=== PATIENT | female | born 2000 | race Caucasian/White ===

== ENCOUNTER 2024-07-02 14:09 | Observation (INO) | payer BC, SELFPAY ==
--- NOTE | ~2024-07-02 | XR_ITS ---
XR ankle LT min 3V Ordering provider: Alcira Pan PA-C History: . injury . Comparison: None. FINDINGS: BONES: Fracture of the medial and lateral malleoli is noted with displacement. Fracture in the forest pathology professor ior malleolus is also seen. JOINT SPACES: Widening of the ankle joint is noted. SOFT TISSUES: Soft tissue swelling over the medial malleolus. IMPRESSION: Trimalleolar fracture with minimal displacement of the tibia medially and widening of the joint space .. Reviewed, dictated and finalized at location A. IMPRESSION: Trimalleolar fracture with minimal displacement of the tibia medially and widen ing of the joint space..
--- NOTE | ~2024-07-02 | XR_ITS ---
HISTORY: splint COMPARISON: Plain film evaluation of the left ankle, performed 2 hours earlier TECHNIQUE: 2 views of the left ankle postreduction. FINDINGS: Near anatomic alignment of the distal fibula and tibia. The ankle mortise is is near anatomic. Significant bilateral soft tissue swelling is noted. IMPRESSION: Near anatomic alignment post reduction, as detailed above. Reviewed, dictated and finalized at location A.
--- NOTE | ~2024-07-02 | XR_ITS ---
INTRAOPERATIVE FLUOROSCOPY: CLINICAL HISTORY: 24 years old Female; ORIF LEFT ANKLE PROCEDURE COMMENTS: Limited intraoperative fluoroscopy of the left ankle was performed. CUMULATIVE DOSE: 0.94 mGy FLUOROSCOPY TIME: 48 seconds FINDINGS/IMPRESSION: Please refer to operative note for further details. Reviewed, dictated and finalized at location A.
[2024-07-02 14:19] VITALS: BP 135/87; PULSE 80; RESP 17; TEMP 36.4; O2SAT 100
--- OUTSIDE RECORDS SUMMARY | 2024-07-02 15:17 | XMS_ITS | Referral Summary ---
Author Organization [facility] er Address [address] [place] [address] Care Team Providers Care Block Saw Operator Name Role Phone Shelly Lemus NP Primary Care Provider [phone] Encounters Date Type Department Care Team Description 05/28/2024 Orders Only [address] [phone] Mary Piña, RN 05/27/2024 Orders Only [address] [id number] Mary Piña RN 05/20/2024 Results Follow-Up [address] [phone] Aracelis Almeida MD 05/14/2024 3:00 PM CDT Office Visit [address] [phone] Felicia Munguia NP Routine gynecological examination (Primary Dx) 04/29/2024 Orders Only [address] [phone] Aracelis Almeida MD 04/29/2024 Orders Only [facility] [address] [place] [id number] Felicia Munguia, CATCHER PLUG from Last 3 Months Allergies No known active allergies Medications busPIRone (BUSPAR) 5 mg tabletIndications :Generalized Anxiety Disorder Take 1 tablet (5 mg total) by mouth 3 (three) times a day 270 tablet 3 10/06/19 21 Active albuterol HFA (PROVENTIL HFA,VENTOLIN HFA,PROAIR HFA) 90 mcg/actuation inhaler INHALE 1 PUFF EVERY 4 HOURS NEEDED FOR WHEEZING OR SHORTNESS OF BREATH. 8.5 each 1 03/10/19 22 Active levonorgestreL (KYLEENA) IUD 1 each by intrauterine route once 07/08/19 22 027 Active Aklief 0.005 % cream 01/17/20 22 Active Onexton 1.2 %(1 % base) -3.75 % gel with pump 01/17/20 22 Active atomoxetine (STRATTERA) 18 mg capsuleIndication s:Attention-Defic it Hyperactivity Disorder Take 1 capsule (18 mg total) by mouth daily 90 capsule 1 10/03/19 23 Active escitalopram (LEXAPRO) 10 mg tablet Take 1 tablet (10 mg total) by mouth daily 90 tablet 11 02/12/20 24 Active tirzepatide, weight loss, (Zepbound) 5 mg/0.5 mL pen injector Inject 0.5 mL (5 mg total) under the skin every 7 days 2 mL 2 05/29/19 25 Active Active Problems Problem Noted Date Diagnosed Date B12 deficiency 10/02/2022 Assessment & Plan (10/02/2022 2:10 PM CDT): B12 on low end of normal. Discussed with patient she may utilize [id number] B12 500 mcg daily. Urinary incontinence 08/10/2022 Assessment & Plan (08/10/2022 2:20 PM CDT): Possible clinical presentation of overactive bladder or IC. UA today demonstrates trace blood and leukocytes. Repeat UA in 2 weeks. Will order Bactrim. May need pelvic floor physical therapy. Discussed bladder irritants. Refer to Urology for further evaluation. Encounter for weight loss counseling 10/12/2021 Assessment & Plan (06/06/2023 2:51 PM CDT): Discussed with patient today healthy well-balanced diet. Will refer to nutrition Services for further education. Discussed with patient increasing water intake and physical activity. Recommend daily multivitamin. Discussed GLP1 injectable weight loss medications. Discussed with patient long- term side effects and common side effects of medication. She will check with insurance to see if these are covered medications. Has failed Wellbutrin in the past. She will contact the [employer] if she wishes to start medication and follow-up in 4 weeks. Assessment & Plan (10/12/2021 10:37 AM CDT): Discussed healthy living today including need for healthy weight, healthy diet, adequate sleep, adequate activity level, and health maintenance screening tests. Attention deficit hyperactiv ity disorder (ADHD), predominantly inattentive type 08/30/2021 Assessment & Plan (10/02/2022 2:07 PM CDT): Chronic and worsening. Trial Strattera 18 mg daily. Discussed with patient if this helps improve symptoms of anxiety may also titrate down Lexapro. She will send message through [employer] regarding updates since she will be going back to school. If symptoms persist or worsen please call or return to clinic. Patient will schedule Pap and wellness exam. Assessment & Plan (08/10/2022 2:19 PM CDT): Unable to tolerate Adderall. Seems to be stable in school at this time. Assessment & Plan (02/13/2022 3:[address] RESEARCH ENGINEER): Chronic and worsening since she has not been on her medication. Will restart Adderall 10 mg in collaboration with Dr. Merchant. Patient lost follow-up when she went back to school and then contracted influenza a when she was due to be seen in clinic. Will continue does and treatment plan in collaboration with Dr. Merchant. She will completed tele visit in 3 months for follow-up. Assessment & Plan (10/12/2021 10:55 AM CDT): Patient seems to be doing very well on adderall 10mg daily. Will continue does and treatment plan in collaboration with Dr. Merchant. Patient will be moving back to [facility] for fallester. She will follow-up in 3 months when she is on fall break. Assessment & Plan (08/30/2021 3:45 PM CDT): Will start Adderall 10 mg once daily in collaboration with Dr. Merchant. Patient is attending school and working full-time. Discussed with patient this should better help her focus on her studies. Follow-up in 4 weeks for wellness exam and further evaluation. Generalized anxiety disorder 10/05/2020 Assessment & Plan (10/02/2022 2:07 PM CDT): Continue Lexapro 10 mg daily.. BuSpar 5 mg t.i.d. as needed. Pt agrees to call or RTC with any issues or concerns. Pt agrees to call or seek emergent medical attention and seek help from family members if there are any intentions of inflicting harm to self or others. Pt understands and agrees with treatment plan. Assessment & Plan (02/13/2022 3:[address] RESEARCH ENGINEER): Continue Lexapro 10 mg daily.. Pt agrees to call or RTC with any issues or concerns. Pt agrees to call or seek emergent medical attention and seek help from family members if there are any intentions of inflicting harm to self or others. Pt understands and agrees with treatment plan. Assessment & Plan (10/12/2021 10:55 AM CDT): Chronic and stable. Continue current medication(s) Assessment & Plan (02/11/2021 11:[address] RESEARCH ENGINEER): Patient doing well on Lexapro and BuSpar 5 mg 3 times a day as needed. Discussed increasing Lexapro however patient is doing well at this time. Assessment & Plan (10/05/2020 12:04 PM CDT): Treatment plan as above. May also consider p.r.n. propranolol Moderate episode of recurrent major depressive d isorder 03/11/2020 Assessment & Plan (06/06/2023 2:52 PM CDT): Chronic and stable. Continue current medication(s) Assessment & Plan (08/10/2022 2:18 PM CDT): Chronic and stable. Continue current medication(s) Assessment & Plan (02/13/2022 3:[address] RESEARCH ENGINEER): Chronic and stable. Continue current medication(s) Assessment & Plan (10/12/2021 10:48 AM CDT): Chronic and stable. Continue current medication(s) Assessment & Plan (08/30/2021 3:46 PM CDT): Chronic and stable. Continue current medication(s) Assessment & Plan (10/05/2020 12:04 PM CDT): Discussed with patient decreasing Wellbutrin to 150 mg once daily times 3-5 days while starting Lexapro half tab nightly. In 1 week patient may increase Lexapro to full tablet daily well stopping the Wellbutrin. Patient may also take BuSpar as needed for her anxiousness. Denies SI/HI today. Assessment & Plan (07/09/2020 1:37 PM CDT): Increase Wellbutrin to 300 mg daily and add BuSpar 5 mg as needed. Pt agrees to call or RTC with any issues or concerns. Pt agrees to call or seek emergent medical attention and seek help from family members if there are any intentions of inflicting harm to self or others. Pt understands and agrees with treatment plan. Assessment & Plan (03/26/2020 8:[address] RESEARCH ENGINEER): Patient seems to be improving on wellbutrin now that she has weaned off effexor. Continue wellbutrin 150mg daily and follow-up in 3-4 weeks. . Pt agrees to call or RTC with any issues or concerns. Pt agrees to call or seek emergent medical attention and seek help from family members if there are any intentions of inflicting harm to self or others. Pt understands and agrees with treatment plan. Assessment & Plan (03/11/2020 8:[address] RESEARCH ENGINEER): Wean off Effexor and start Wellbutrin since patient is in school. Patient to follow up with in touch visit in 2 weeks. Discussed with patient side effects of stopping Effexor abruptly. . Pt agrees to call or RTC with any issues or concerns. Pt agrees to call or seek emergent medical attention and seek help from family members if there are any intentions of inflicting harm to self or others. Pt understands and agrees with treatment plan. Chronic fatigue 03/11/2020 Assessment & Plan (08/10/2022 2:18 PM CDT): Will check labs. Encouraged healthy well-balanced diet. Please stop drinking energy drinks. Increase water intake. Assessment & Plan (05/26/2021 12:30 PM CDT): Patient does feel chronic fatigue may be related to control. She would like to stop control and consider IUD contraception. Patient does continue Lexapro daily. Class 2 obesity without seri ous comorbidity with body mass index (BMI) of 38.0 to 38.9 in adult 03/11/2020 Assessment & Plan (10/02/2022 2:00 PM CDT): BMI Follow-up includes: education provided. Assessment & Plan (08/10/2022 2:23 PM CDT): BMI Follow-up includes: education provided. Assessment & Plan (02/13/2022 3:[address] RESEARCH ENGINEER): BMI Follow-up includes: education provided. Assessment & Plan (10/12/2021 10:48 AM CDT): BMI Follow-up includes: education provided. Assessment & Plan (08/30/2021 3:23 PM CDT): BMI Follow-up includes: education provided. Assessment & Plan (05/26/2021 12:31 PM CDT): BMI Follow-up includes: education provided. Assessment & Plan (02/11/2021 11:[address] RESEARCH ENGINEER): BMI Follow-up includes: education provided. Assessment & Plan (07/09/2020 1:29 PM CDT): BMI Follow-up includes: education provided. Assessment & Plan (03/26/2020 8:[address] RESEARCH ENGINEER): BMI Follow-up includes: education provided. Assessment & Plan (03/11/2020 9:[address] RESEARCH ENGINEER): BMI Follow-up includes: education provided. Resolved Problems Problem Noted Date Diagnosed Date Resolved Date Elevated blood pressure read ing in office without diagnosis of hypertension 08/10/20222022 Assessment & Plan (08/10/2022 2:20 PM CDT): Patient will track home blood pressure readings and call if consistently greater than 130/80. IUD contraception 05/26/2021 05/14/2024 Assessment & Plan (05/26/2021 12:31 PM CDT): Will refer patient to OBGYN for consultation for IUD. Discussed with patient this may be a good alternative to oral contraceptives in if she has been feeling down and fatigue since taking control. Denies SI/HI today Awaiting cyber access at this time for confirmation of coverage for ID BMI 29.0-29.9,adult 10/05/2020 02/12/20 21 Assessment & Plan (10/05/2020 11:19 AM CDT): BMI Follow-up includes: education provided. Shortness of breath 10/05/2020 10/13/19 22 Assessment & Plan (02/11/2021 11:[address] RESEARCH ENGINEER): Clinical presentation of exercise-induced asthma however will order baseline chest x-ray today. Albuterol as needed prior to exercise. If chest x-ray negative and albuterol is not effective consider pulmonary function testing and wellness visit. Palpitations 10/05/2020 10/12/2021 Assessment & Plan (10/05/2020 12:03 PM CDT): EKG today demonstrated sinus rhythm me a with a heart rate of 67. No previous EKGs for comparison. Given patient's symptomatic palpitations will order Holter monitor. Also consider propranolol as needed for anxiety episodes. Oral contraceptive pill surveillance 07/09/2020 10/12/2021 Assessment & Plan (07/09/2020 1:37 PM CDT): Discussed risks, benefits of different contraceptive choices for contraception. States she has no personal or family history of classic migraine, stroke, venous thromboembolism, cardiac or cerebrovascular disease, lupus, hypertension. She is not a current smoker. After this counselling she elected to proceed with oral contraceptives. Has tolerated in past. Right ankle sprain 07/09/2020 Assessment & Plan (07/09/2020 1:38 PM CDT): Continue conservative measures. Call or rtc if symptoms persists or worsen. Rhinorrhea 03/11/2020 07/09/2020 Assessment & Plan (03/11/2020 8:[address] RESEARCH ENGINEER): Will COVID test today since patient is returning to school. Closed oblique fracture of w aist of scaphoid bone of right wrist 06/13/2018 03/11/2020 Immunizations Immunization Administration Dates Next Due COVID-19 mRNA (Click Bus) 0.3 m L (30 mcg) vaccine (12 years and up) 02/12/2024 DTaP 10/01/2006, 3,2001,10/03,2001 DTaP 5 Pertussis 06/05/2002, 2,2001,08/07 HPV, Quadrivalent 06/18/2014,12/11/2013 HPV9 12/21/2014 Hep A, Pediatric 12/20/2015,09/06/2012 Hep B / HiB 06/05/2002,2001 Hep B, Adolescent or Pediatric 06/05/2002,2001,2001 HiB 06/05/2002,2001,2001 Hib (HbOC) 2001 IPV 10/01/2006, 2,2001,08/07 Influenza LAIV (Nasal) 12/10/2010,12/22/2009, Influenza, Quadrivalent, Spl it, Preservative Free, Intramuscular 02/13/2022,02/11/2021,01/15/2020,12/19,12/21/2014,12/11/2013 Influenza, Split 12/18/2002 Influenza, Trivalent, IM (MDV) 12/18/2002,2001,01/03/2002 Influenza, Trivalent, Preser vative Free, Intramuscular 02/12/2024 Influenza, Unspecified 06/06/2023(Deferr ed: Patient decision),11/26/2022(Deferred: Patient decision),02/13/2022(Deferred: Patient Refused) MMR 10/01/2006,06/05/2002 Meningococcal B, OMV (Bexsero) 01/15/2020 Meningococcal Conjugate (Menveo) 01/15/2020 Meningococcal MCV4P (Menactra) 04/24/2018,2012 Pfizer SARS-CoV-2 Monovalent Vaccination (12+ Yrs) PURPLE 09/17/2020,08/25/2020 Pneumococcal Conjugate 7-Valent 12/19/19 03,2001,2001,08/07 Polio, Unspecified 2001,2001, 002 Tdap 09/06/2012 Varicella 10/01/2006,06/05/2002 Social History Tobacco Use Types Packs/Day Years Used Date Smoking Tobacco: Never Smokeless Tobacco: Never Tobacco Cessation:Counseling Given: Not Answered Alcohol Use Standard Drinks/Week Comments Defer 0 (1 standard drink = 0.6 oz pur e alcohol) PHQ-2 Answer Date Recorded PHQ-2 Total Score (If total score is 3 or more points, staff should administer the PHQ-9) 0 05/14/2024 Comments No Sex and Gender Information Value Date Recorded Sex Assigned at Not on file Legal Sex Female 12:[address] ENGINEER Gender Identity Not on file Sexual Orientation Not on file Last Filed Vital Signs Vital Sign Reading Time Taken Comments Blood Pressure 116/70 05/14/2024 3:16 PM CDT Pulse 90 05/14/2024 3:16 PM CDT Temperature 36.9 C (98.4 F) 11/15/2022 3:46 PM CDT Respiratory Rate 20 05/14/2024 3:16 PM CDT Oxygen Saturation 98% 05/14/2024 3:16 PM CDT Inhaled Oxygen Concentration - - Weight 95.3 kg (210 lb) 05/14/2024 3:16 PM CDT Height 162.6 cm (5' 4 ) 05/14/2024 3:16 PM CDT Body Mass Index 36.05 05/14/2024 3:16 PM CDT Plan of Treatment Not on file Procedures Procedure Name Priority Date/Time Associated Diagnosis Comments PAP, REFLEX HPV Routine 05/14/2024 4:08 PM CDT Routine gynecological examination N. GONORRHOEAE/C. TRACHOMATIS AMPLIFICATION Routine 05/14/2024 4:08 PM CDT from Last 3 Months Results * Pap, reflex HPV (05/14/2024 4:08 PM CDT) CLINICAL INFORMATION: None given [facility] LMP UNKNOWN [facility] Prev[facility] Bx NONE GIVEN [facility] SOURCE: Cervix, Endocervix [facility] Pap, specimen adequacy [facility] Comment: Satisfactory for evaluation. Endocervical/transformation zone component present. Age and/or menstrual status not provided HPV interp Cytology Results: Negative for intraepithelial lesion or malignancy. [facility] Infection: Fungal organisms morphologically consistent with Catherine spp. [facility] COMMENTS This Pap test has been evaluated with computer assisted technology. [facility] Banking Analyst [facility] [employer] [facility] Comment: TLS, CT(ASCP) CT Screening Location: [address] [address] Comment [facility] Comment: EXPLANATORY NOTE: The Pap is a screening test for cervical cancer. It is not a diagnostic test and is subject to false negative and false positive results. It is most reliable when a satisfactory sample, regularly obtained, is submitted with relevant clinical findings and history, and when the Pap result is evaluated along with historic and current clinical information. Thin prep 05/14/2024 4:08 PM CDT 05/16/2024 3:49 AM CDT Aracelis Almeida MD LAB CYTOLOGY ORDERABL ES Final Result Performing Organization Address [facility]/ZIP Co de Phone Number [facility] [address] * N. gonorrhoeae/C. trachomatis Amplification (05/14/2024 4:08 PM CDT) C. trachomatis RNA NOT DETECTED NOT DETECTED [facility] [place] N. gonorrhoeae RNA NOT DETECTED NOT DETECTED [facility] [place] Comment [facility] [place] Comment: The analytical performance characteristics of this assay, when used to test SurePath(TM) specimens have been determined by [facility]. The modifications have not been cleared or approved by the FDA. This assay has been validated pursuant to the CLIA regulations and is used for clinical purposes. For additional information, please refer to https://education.[employer].Fabbeo/faq/JGR636 (This link is being provided for information/ educational purposes only.) 05/14/2024 4:08 PM CDT 05/16/2024 3:49 AM CDT Aracelis Almeida MD LAB MICROBIOLOGY - GE NERAL ORDERABLES Final Result Performing Organization Address City/[facility]/ZIP Co de Phone Number [facility] [address] [address] from Last 3 Months Insurance [employer] OPEN ACCESS [facility] [place] [address] [facility] [employer] [place] [facility] Care Teams Block Saw Operator Relationship Specialty Start Date End Date Shelly Lemus NP [address] [place] [address] PCP - General Family Medicine 03/11/20
--- OUTSIDE RECORDS SUMMARY | 2024-07-02 15:17 | XMS_ITS | Encounter Summary ---
Author Organization [facility] Healthcare Address [address] [place] [address] Care Team Providers Care Rn Complex Care Name Role Phone Shelly Lemus NP Primary Care Provider [phone] Encounter Details Date Type Department Care Team (Late st Contact Info) Description 05/20/2024 Results Follow-Up [facility] [address] [place] [id number] Aracelis Almeida MD [address] [place] [address] Social History Tobacco Use Types Packs/Day Years Used Date Smoking Tobacco: Never Smokeless Tobacco: Never Alcohol Use Standard Drinks/Week Comments Defer 0 (1 standard drink = 0.6 oz pur e alcohol) PHQ-2 Answer Date Recorded PHQ-2 Total Score (If total score is 3 or more points, staff should administer the PHQ-9) 0 05/14/2024 Comments No Sex and Gender Information Value Date Recorded Sex Assigned at Not on file Legal Sex Female 12:30 AM COOKER PROCESS CHEESE Gender Identity Not on file Sexual Orientation Not on file documented as of this encounter Plan of Treatment Not on file documented as of this encounter Visit Diagnoses Not on filedocumented in this encounter Care Teams Rn Complex Care Relationship Specialty Start Date End Date Shelly Lemus NP [address] [place] [address], [place] [address] PCP - General Family Medicine 03/11/20 documented as of this encounter
--- OUTSIDE RECORDS SUMMARY | 2024-07-02 15:17 | XMS_ITS | Clinical Summary ---
Author Organization [facility] Address [address] [place] [address] Care Team Providers Care Bi Data Modeler Name Role Phone Shelly Lemus NP Primary Care Provider [phone] Allergies No known active allergies Medications busPIRone [...] normal. Discussed with patient she may utilize [id number] B12 500 mcg daily. Urinary incontinence 08/10/2022 [...] in the past. She will contact the [facility] if she wishes to start medication and [...] down Lexapro. She will send message through [employer] regarding updates since she will be going back to school. If symptoms persist or worsen please call or return to clinic. Patient will schedule Pap and wellness exam. Assessment & Plan (08/10/2022 2:19 PM CDT): Unable to tolerate Adderall. Seems to be stable in school at this time. Assessment & Plan (02/13/2022 3:43 PM ARTS AND CRAFTS INSTRUCTOR): Chronic and worsening since she has not [...] Merchant. Patient will be moving back to [employer] for fall semester. She will follow-up in 3 months when [...] plan. Assessment & Plan (02/13/2022 3:43 PM ARTS AND CRAFTS INSTRUCTOR): Continue Lexapro 10 mg daily.. Pt agrees [...] medication(s) Assessment & Plan (02/11/2021 11:28 AM ARTS AND CRAFTS INSTRUCTOR): Patient doing well on Lexapro and BuSpar [...] medication(s) Assessment & Plan (02/13/2022 3:41 PM ARTS AND CRAFTS INSTRUCTOR): Chronic and stable. Continue current medication(s) Assessment [...] plan. Assessment & Plan (03/26/2020 8:21 AM ARTS AND CRAFTS INSTRUCTOR): Patient seems to be improving on wellbutrin [...] plan. Assessment & Plan (03/11/2020 8:57 AM ARTS AND CRAFTS INSTRUCTOR): Wean off Effexor and start Wellbutrin since [...] provided. Assessment & Plan (02/13/2022 3:30 PM ARTS AND CRAFTS INSTRUCTOR): BMI Follow-up includes: education provided. Assessment & Plan (10/12/2021 10:48 AM CDT): BMI Follow-up includes: education provided. Assessment & Plan (08/30/2021 3:23 PM CDT): BMI Follow-up includes: education provided. Assessment & Plan (05/26/2021 12:31 PM CDT): BMI Follow-up includes: education provided. Assessment & Plan (02/11/2021 11:25 AM ARTS AND CRAFTS INSTRUCTOR): BMI Follow-up includes: education provided. Assessment & Plan (07/09/2020 1:29 PM CDT): BMI Follow-up includes: education provided. Assessment & Plan (03/26/2020 8:20 AM ARTS AND CRAFTS INSTRUCTOR): BMI Follow-up includes: education provided. Assessment & Plan (03/11/2020 9:00 AM ARTS AND CRAFTS INSTRUCTOR): BMI Follow-up includes: education provided. Resolved Problems [...] 22 Assessment & Plan (02/11/2021 11:26 AM ARTS AND CRAFTS INSTRUCTOR): Clinical presentation of exercise-induced asthma however will [...] 07/09/2020 Assessment & Plan (03/11/2020 8:56 AM ARTS AND CRAFTS INSTRUCTOR): Will COVID test today since patient is returning to school. Closed oblique fracture of w aist of scaphoid bone of right wrist 06/13/2018 03/11/2020 Encounters Date Type Department Care Team Description 05/28/2024 Orders Only [address] [phone] Mary Piña RN 05/27/2024 Orders Only [address] [phone] Mary Piña RN 05/20/2024 Results Follow-Up [address] [phone] Aracelis Almeida MD 05/14/2024 3:00 PM CDT Office Visit [address] [phone] Felicia Munguia NP Routine gynecological examination (Primary Dx) 04/29/2024 Orders Only [address] [address] Aracelis Almeida MD 04/29/2024 Orders Only [address] [phone] Felicia Munguia NP from Last 3 Months Immunizations Immunization Administration Dates Next Due COVID-19 mRNA (Prylos) 0.3 m L (30 mcg) vaccine (12 [...] Unspecified 2001,2001, 002 Tdap 09/06/2012 Varicella 10/01/2006,06/05/2002 Medical History Medical History Date Comments Heart murmur Family History Medical History Relation Name Comments Asthma Brother Stanley Asthma; Diabetes Father Yaritza Other Father Yaritza Diabetes -Type 1; Cervical cancer Mother Other Mother Alive and well; Allergies Other Family history of Allergies; Allergies Sister Allergies; Breast cancer Neg Hx Colon cancer Neg Hx Ovarian cancer Neg Hx Pancreatic cancer Neg Hx Skin cancer Neg Hx Relation Name Status Comments Brother Stanley Father Yaritza Alive Mother Alive Other Sister Social History Tobacco Use Types Packs/Day Years [...] on file Legal Sex Female 12:30 AM ARTS AND CRAFTS INSTRUCTOR Gender Identity Not on file Sexual Orientation Not on file Obstetrics History Para Term AB IAB SAB Ectopic Multiple Livin g Live Births 0 0 0 0 0 0 0 0 0 0 0 Last Filed Vital Signs Vital Sign Reading [...] 05/14/2024 3:16 PM CDT Plan of Treatment Health Maintenance Due Date Last Done Comments Hepatitis C Screening 2001 Meningococcal B Vaccine (2 o f 2 - Bexsero SCDM 2-dose series) 07/14/2020 01/15/2020 DTaP/Tdap/Td Vaccine (7 - Td or Tdap) 09/06/2022 09/06/2012, 10/01/2006, 06/05/2002, Additional history exists Cervical Cancer Screening 05/14/2025 05/14/2024 Chlamydia and Gonorrhea (GC/ CT) Screening 05/14/2025 05/14/2024, 07/12/2020, 07/09/2020 Depression Screening 05/14/2025 05/14/2024, 06/06/2023, 10/02/2022, Additional history exists Regular Well Visit/Exam 18-64 05/14/2025, 10/12/2021, 01/15/2020 Hepatitis B Screening Completed 06/05/2002 , 06/05/2002, 2001, Additional history exists Pneumococcal vaccine <65 Completed 003, 2001, 2001, Additional history exists Varicella Vaccines Completed 10/01/2006, 06/05/2002 HPV Vaccines Completed 12/21/2014, 05/28, 12/11/2013 Covid-19 Vaccine Completed 02/12/2024, , 08/25/2020 Influenza Vaccine Completed 02/12/2024, , 02/11/2021, Additional history exists Procedures Procedure Name Priority Date/Time Associated Diagnosis Comments PAP, REFLEX HPV Routine 05/14/2024 4:08 PM CDT Routine gynecological examination N. GONORRHOEAE/C. TRACHOMATIS AMPLIFICATION Routine 05/14/2024 4:08 PM CDT from Last 3 Months Results * Pap, reflex HPV (05/14/2024 4:08 PM CDT) CLINICAL INFORMATION: None given [facility] LMP UNKNOWN [facility] Previous Pap NONE GIVEN [facility] Prev. Bx NONE GIVEN [facility] SOURCE: Cervix, Endocervix [facility] Pap, specimen adequacy [facility] Comment: Satisfactory for evaluation. Endocervical/transformation zone component present. Age and/or menstrual status not provided HPV interp Cytology Results: Negative for intraepithelial lesion or malignancy. [facility] Infection: Fungal organisms morphologically consistent with Catherine spp. [facility] COMMENTS This Pap test has been evaluated with computer assisted technology. [facility] Crew Chief [facility] Comment: TLS, CT(ASCP) CT Screening Location: [place] [address] Comment [facility] Comment: EXPLANATORY NOTE: The Pap is a [...] ORDERABL ES Final Result Performing Organization Address City/[facility]/ZIP Co de Phone Number [employer] [address] [address] [place] [address] * N. gonorrhoeae/C. trachomatis Amplification (05/14/2024 4:08 PM CDT) C. trachomatis RNA NOT DETECTED NOT DETECTED [facility] [place] N. gonorrhoeae RNA NOT DETECTED NOT DETECTED [facility] Comment [facility] Comment: The analytical performance characteristics of this assay, when used to test SurePath(TM) specimens have been determined by [facility]. The modifications have not been cleared or approved by the FDA. This assay has been validated pursuant to the CLIA regulations and is used for clinical purposes. For additional information, please refer to https://education.Graffiti/faq/OKZ498 (This link is being provided for information/ educational purposes only.) 05/14/2024 4:08 PM CDT 05/16/2024 3:49 AM CDT Aracelis Almeida MD LAB MICROBIOLOGY - GE NERAL ORDERABLES Final Result Performing Organization Address City/[facility]/ZIP Co de Phone Number [employer] [address] [place] [address] from Last 3 Months Insurance FOR[facility], 1928–1983 [place] [address] [facility] CARLIE REYNOLDS [facility] Care Teams Bi Data Modeler Relationship Specialty Start Date End Date Shelly Lemus NP [address] [place] [address] PCP - General Family Medicine 03/11/20
--- OUTSIDE RECORDS SUMMARY | 2024-07-02 15:17 | XMS_ITS | Clinical Summary ---
Author Organization [facility] Address [address] [place] [address] Phone Care Team Providers Care Grove Superintendent Name Role Phone Unavailable Primary Care Provider Unavailabl e Allergies No known active allergies Medications escitalopram 10 mg tablet Take 1 Tablet by mouth daily. 3 Active levonorgestreL (KYLEENA) 17.5 mcg/24 hrs (5 yrs) 19.5 mg IUD 1 Each by Intrauterine route. 2 Active Active Problems Problem Noted Date Diagnosed Date Urinary incontinence 08/10/2022 Overview (09/06/2022): Last Assessment & Plan: Possible clinical presentation of overactive bladder or IC. UA today demonstrates trace blood and leukocytes. Repeat UA in 2 weeks. Will order Bactrim. May need pelvic floor physical therapy. Discussed bladder irritants. Refer to Urology for further evaluation. Elevated blood pressure read ing in office without diagnosis of hypertension 08/10/2022 Overview (09/06/2022): Last Assessment & Plan: Patient will track home blood pressure readings and call if consistently greater than 130/80. Attention deficit hyperactiv ity disorder (ADHD), predominantly inattentive type 08/30/2021 Overview (09/06/2022): Last Assessment & Plan: Unable to tolerate Adderall. Seems to be stable in school at this time. IUD contraception 05/26/2021 Overview (09/06/2022): Last Assessment & Plan: Will refer patient to OBGYN for consultation for IUD. Discussed with patient this may be a good alternative to oral contraceptives in if she has been feeling down and fatigue since taking control. Denies SI/HI today Awaiting cyber access at this time for confirmation of coverage for ID Generalized anxiety disorder 10/05/2020 Overview (09/06/2022): Last Assessment & Plan: Continue Lexapro 10 mg daily.. Pt agrees to call or RTC with any issues or concerns. Pt agrees to call or seek emergent medical attention and seek help from family members if there are any intentions of inflicting harm to self or others. Pt understands and agrees with treatment plan. Episode of recurrent major depressive disorder 0 03/11/2020 Overview (09/06/2022): Last Assessment & Plan: Chronic and stable. Continue current medication(s) Chronic fatigue 03/11/2020 Overview (09/06/2022): Last Assessment & Plan: Will check labs. Encouraged healthy well-balanced diet. Please stop drinking energy drinks. Increase water intake. Social History Tobacco Use Types Packs/Day Years Used Date Smoking Tobacco: Never Smokeless Tobacco: Never Alcohol Use Standard Drinks/Week Comments Not Currently 0 (1 standard drink = 0.6 oz pur e alcohol) Comments Unknown Sex and Gender Information Value Date Recorded Sex Assigned at Not on file Legal Sex Female 10:34 AM CDT Gender Identity Not on file Sexual Orientation Not on file Last Filed Vital Signs Vital Sign Reading Time Taken Comments Blood Pressure 139/84 09/06/2022 2:39 PM CDT Pulse 116 09/06/2022 2:39 PM CDT Temperature 36.8 C (98.3 F) 07/03/2020 10:39 AM CDT Respiratory Rate 19 07/03/2020 10:39 AM CDT Oxygen Saturation 100% 09/06/2022 2:39 PM CDT Inhaled Oxygen Concentration - - Weight 103.4 kg (228 lb) 09/06/2022 2:39 PM CDT Height 165.1 cm (5' 5 ) 09/06/2022 2:39 PM CDT Body Mass Index 37.94 09/06/2022 2:39 PM CDT Plan of Treatment Health Maintenance Due Date Last Done Comments CHLAMYDIA SCREENING (ANNUAL) 11-24 YEARS 2012 CERVICAL CANCER SCREENING 2022 HPV/Cotest (21-29) 2022 PAP SMEAR 2022 DTAP/TDAP/TD VACCINES (7 - T d or Tdap) 09/06/2022 09/06/2012, 10/01/2006, 06/05/2002, Additional history exists INFLUENZA VACCINE (#1) 2023 , 02/11/2021, 01/15/2020, Additional history exists HEPATITIS B VACCINES Completed 06/05/2002, 06/05/2002, 2001, Additional history exists HPV VACCINES Completed 12/21/2014, 05/28, 12/11/2013 Insurance [facility] [place] [id number]
[2024-07-02] MEDS: HYDROmorphone HCL INJ (*CRX) 2 MG/ML VIAL 1 MG IV PUSH (16:37)
--- NOTE | 2024-07-02 17:18 | ED.LOWEXIN ---
HPI - Extremity Injury (Lower) General Chief Complaint: Extremity Injury, Lower Stated Complaint: Injury Left ankle-stepped in hole Time Seen by Provider: 07/02/24 14:56 History of Present Illness HPI Narrative: Patient is a 24-year-old female who presents ER with left ankle pain. Stepped in a hole while walking and had sudden onset pain. Cannot bear weight. Has deformity that was splinted by EMS. No numbness or tingling. No head injury. Related Data Home Medications Medication Instructions Recorded Confirmed Last Taken Type clindamycin phosphate 1 % topical 1 applic topical HS 07/02/24 07/02/24 07/02/24 History gel escitalopram oxalate 10 mg tablet 10 mg PO DAILY 07/02/24 07/02/24 07/02/24 History Allergies Allergy/AdvReac Type Severity Reaction Status Date / Time No Known Allergies Allergy Verified 07/02/24 14:10 Review of Systems Review of Systems: All systems reviewed & are unremarkable except as noted in HPI and below Constitutional: Constitutional: Reports no additional constitutional complaints ENT: Reports system reviewed and no additional complaints, except as documented Cardiovascular: Cardiovascular: Reports no additional cardiovascular complaints Respiratory: Respiratory: Reports no additional respiratory complaints Gastrointestinal: Gastrointestinal: Reports no additional gastrointestinal complaints [facility] Past Medical History Medical History (Updated 07/02/24 @ 22:58 by Pop Aguilar MD) Healthy female adult Family History Family History (Updated 07/02/24 @ 18:35 by Venice Gonzalez RN) Father Type 1 diabetes Mother Uterine sarcoma Social History Social History Smoking status: Never smoker Alcohol intake: former Substance use: former Substance use type: marijuana Do You Feel Safe in your Home?: Yes Lack of Transportation: No Lack of Food: Never True Current Housing: I Have Housing Concerned About Future Housing: No Difficulty Paying Gas/Electric Bills: No Difficulty Paying for Meds: No Currently Unemployed: No Education: Associate Degree Difficulty w/ Childcare or Family Care: No Spiritual care concerns: No Exam Narrative: GENERAL: Well-appearing, well-nourished, and in no acute distress. HEAD: Normocephalic, atraumatic. ENT: Mucous membranes moist. NECK: Supple. CHEST: Clear to auscultation. No respiratory distress. HEART: Regular rate and rhythm. Normal peripheral pulses. EXTREMITIES: Left ankle deformity and tenderness over the medial and lateral malleolus. Neurovascular intact. SKIN: Warm, dry, no rash. NEURO: Alert and oriented x3. PSYCH: Normal mood and affect. Course Vital Signs Vital signs: Vital Signs Temperature 97.6 F 07/02/24 14:19 Pulse Rate 80 07/02/24 14:19 Respiratory Rate 17 07/02/24 14:19 Blood Pressure 135/87 07/02/24 14:19 Pulse Oximetry 100 07/02/24 14:19 Oxygen Delivery Room Air 07/02/24 14:19 Temperature 97.4 F L 07/02/24 18:30 Pulse Rate 89 07/02/24 18:30 Respiratory Rate 18 07/02/24 18:30 Blood Pressure 116/71 07/02/24 18:30 Pulse Oximetry 100 07/02/24 18:30 Oxygen Delivery Room Air 07/02/24 14:19 Procedures Orthopedic Fracture Reduction Fracture #1: Time Out Performed: Yes Side: left Fracture Reduction Location: tibia and fibula Analgesia: none Pre-Procedure Neuro Vascular Exam: normal Technique: direct manipulation (Held big toe to relocate unstable ankle) Post Reduction X-rays Demonstrate: anatomical reduction Post-reduction neuro exam: intact Post-reduction vascular exam: intact Splint Applied: Yes (Stirrup splint and short-leg posterior) Patient Tolerated Procedure: well Discharge Plan Discharge Clinical Impression: Closed trimalleolar fracture Patient Disposition: Still a Patient Condition: Stable
[2024-07-02 18:05] VITALS: BP 116/62; PULSE 96; RESP 16; O2SAT 99
--- NOTE | 2024-07-02 18:23 | ADMGEN ---
This patient, Jane Reyze, was admitted to 3 [facility] Surg Room 311-01. Patient/family oriented to hospital policies and general routines including ID bracelet, bed and alarms, visiting hours, pain management, procedures, bathroom and other care routines, personal items, smoking policy, room service/diet, and visiting hours. Information on how to activate the Rapid Response Team has been discussed. Patient/Family are encouraged to report perceived risks to care and to ask questions if they do not understand what they are told or what they should do.
[2024-07-02 18:25] VITALS: BMI 34.0
[2024-07-02 18:30] VITALS: BP 116/71; PULSE 89; RESP 18; TEMP 36.3; O2SAT 100
[2024-07-02] MEDS: SODIUM CHLORIDE 0.9% IV 1,000 ML 125 ML IV CONT (18:44)
[2024-07-02] MEDS: HYDROcodone/acetaminophen (*CRX) 5-325 MG TABLET 1 TAB PO ×2 (18:50→22:33)
[2024-07-02] MEDS: ONDANSETRON INJ 4 MG/2 ML VIAL IV PUSH ×2 (18:51→22:33)
[2024-07-02 20:47] VITALS: BP 114/66; PULSE 81; RESP 16; TEMP 37.3; O2SAT 100
[2024-07-02 22:00] VITALS: BP 144/60; PULSE 76; RESP 16; TEMP 37.1; O2SAT 100
[2024-07-03] VITALS (13 sets, daily range): BP systolic 113–133; BP diastolic 57–77; PULSE 74–96; RESP 11–20; TEMP 36.1–37; O2SAT 97–100
[2024-07-03] MEDS: SODIUM CHLORIDE 0.9% IV 1,000 ML 125 ML IV CONT ×3 (03:05→16:06)
[2024-07-03] MEDS: MORPHINE SULFATE (*CRX) 4 MG/ML INJ IV PUSH ×5 (03:47→19:51)
[2024-07-03] MEDS: ONDANSETRON INJ 4 MG/2 ML VIAL IV PUSH ×2 (03:48→08:58)
--- NOTE | 2024-07-03 08:58 | PM.IMHP ---
H&P: HPI History of Present Illness Date/Time: 07/03/24 08:58 Chief Complaint: Left ankle fracture Narrative: 24-year-old woman who was hiking yesterday, stepped and twisted left ankle. Obvious deformity and unable to bear weight. Presented to the emergency room and was found to have fracture of the left ankle with subluxation of the ankle mortise. Subluxation reduced in the emergency room and splinted. Patient admitted for further care. Complains of pain left ankle. Denies numbness or tingling. Denies any prior problems with the ankle. Denies any other injury at the time of her fall. Review of Systems Constitutional: Constitutional: Denies fever(s) Eyes: Eyes: Denies blurry vision ENT: Reports Normal hearing present Cardiovascular: Cardiovascular: Denies chest pain and Denies dyspnea Respiratory: Respiratory: Denies dyspnea and Denies wheezing Gastrointestinal: Gastrointestinal: Denies abdominal pain Genitourinary: Genitourinary: Denies urinary urgency Musculoskeletal: Musculoskeletal: Reports as per HPI and Denies numbness Integumentary/Breasts: Skin/Breast: Denies changing lesions and Denies sores Neurologic: Reports Normal hearing present, Denies behavioral changes, Denies confusion, Denies numbness and Denies convulsions Psychiatric: Psychiatric: Denies behavioral changes, Denies confusion and Denies hallucinations Endocrine: Endocrine: Denies heat intolerance Hematologic/Lymphatic: Hematologic/Lymphatic: Denies easy bleeding Allergic/Immunologic: Allergic/Immunologic: Denies wheezing PMF Past Medical History Medical History Healthy female adult Family History Family History Father Type 1 diabetes Mother Uterine sarcoma Social History Social History Smoking status: Never smoker Alcohol intake: former Substance use: former Substance use type: marijuana Do You Feel Safe in your Home?: Yes Lack of Transportation: No Lack of Food: Never True Current Housing: I Have Housing Concerned About Future Housing: No Difficulty Paying Gas/Electric Bills: No Difficulty Paying for Meds: No Currently Unemployed: No Education: Associate Degree Difficulty w/ Childcare or Family Care: No Spiritual care concerns: No Meds Home Medications and Allergies Home Medications Medication Instructions Recorded Confirmed Type clindamycin phosphate 1 % topical 1 applic topical HS 07/02/24 07/02/24 History gel escitalopram oxalate 10 mg tablet 10 mg PO DAILY 07/02/24 07/02/24 History Allergies Allergy/AdvReac Type Severity Reaction Status Date / Time No Known Allergies Allergy Verified 07/02/24 14:10 Vital Signs Vital Signs - 24 hr 07/02/24 14:19 07/02/24 18:05 07/02/24 18:30 Temperature 97.6 F 97.4 F L Pulse Rate 80 96 89 Respiratory Rate 17 16 18 Blood Pressure 135/87 116/62 116/71 Pulse Oximetry 100 99 100 Oxygen Delivery Room Air 07/02/24 20:47 07/02/24 22:00 Temperature 99.1 F 98.8 F Pulse Rate 81 76 Respiratory Rate 16 16 Blood Pressure 114/66 144/60 H Pulse Oximetry 100 100 Oxygen Delivery Exam Const: General: No confusion Orientation/consciousness: No confusion HENMT: Head: normal to inspection, normocephalic and atraumatic Neck: Neck: supple and nontender Chest: Chest palpation & inspection: normal inspection of the chest Resp: Effort & Inspection: normal respiratory effort and no audible wheezes Cardio: Rate: regular rate : General: Yes deferred Skin: General skin exam: no rashes or lesions noted Neuro: General: No confusion Extrem: General: capillary refill normal Right upper extremity: normal to inspection Left upper extremity: normal to inspection Right lower extremity: normal to inspection and hip/thigh Details: normal to inspection Left lower extremity: hip/thigh Details: normal to inspection, knee Details: normal to inspection and knee ligament exam normal Details: anterior drawer test normal, valgus stress test normal, varus stress test normal and Babak's test normal, ankle (no calf tenderness) Details: abnormal to inspection ( Obvious swelling at the ankle joint), tenderness ( lateral malleolus), swelling (moderate lateral ankle), abnormal ROM Details: pain with active ROM Details: with plantar flexion and with dorsiflexion and with range as follows ( limited secondary to injury), crepitus Details: at the lateral malleolus and other ( good capillary refill in toes, Good sensation to touch throughout all toes. Splint in place. Able to move toes.) and foot Details: normal capillary refill, toes with normal ROM, vascular exam Details: dorsalis pedis pulse present and motor-sensory exam Psych: Affect: normal affect H&P: Results Imaging Ankle x-ray left: My impression: emergency room radiographs show left ankle trimalleolar fracture with posterior subluxation of the talus. Posterior reduction films show talus in good all alignment in the ankle mortise. Medial and lateral malleolus fractures with displacement. Small posterior malleolus fracture. Assessment and Plan Assessment and plan (1) Closed trimalleolar fracture: Qualifiers: Encounter type: initial encounter Laterality: left Qualified Code(s): S82.852A - Displaced trimalleolar fracture of left lower leg, initial encounter for closed fracture Code(s): S82.853A - Displaced trimalleolar fracture of unspecified lower leg, initial encounter for closed fracture Status: Acute Assessment and Plan: New patient evaluation for chief complaint Left ankle fracture. History, physical exam and radiographs reviewed with the patient. Fall twisting the left ankle yesterday. Reduced in the emergency room. Discussed the condition, nature, etiology and course of natural history with the patient. Treatment options including surgical and nonoperative treatment were reviewed. Risks and benefits of each as well as alternatives reviewed. The patient's questions were answered. Conservative treatment ice, compression and elevation. Mechanical DVT prophylaxis with SCDs right lower extremity. Pain control. Plan Discussed nonoperative and operative treatment options with the patient. Risks and benefits of each as well as alternatives were reviewed. All of the patient's questions were answered. The risks of surgery reviewed including but not limited to: Neurovascular damage, wound complication, infection, blood clot, pulmonary embolus, stroke, myocardial infarction, and anesthetic risks up to and including . Continued pain and possible dysfunction were explained. Specific risks of the procedure including later recurrence of deformity. No guarantees were offered. If hardware used, discussed risk of failure/ breakage and possible need for removal. If complications occur, the patient understands the need for further treatment, possible further surgery. Patient verbalizes understanding and wishes to proceed. PLAN: Open reduction internal fixation left ankle fracture.
--- NOTE | 2024-07-03 09:03 | WPDHPUPDATE1 ---
History and Physical Update Update Date/Time: 07/03/24 09:03 History and Physical has been reviewed, including an updated exam of the patient. There are NO changes in the patient's condition. Risks, benefits, and alternatives have been discussed and questions answered. Patient agrees to proceed with procedure.
[2024-07-03] MEDS: HYDROcodone/acetaminophen (*CRX) 5-325 MG TABLET 1 TAB PO ×2 (11:13→16:42)
--- NOTE | 2024-07-03 12:05 | PC.NURSE ---
Pt leaving floor and headed to pre-op.
[2024-07-03] MEDS: LACTATED RINGERS 1,000 ML 30 ML IV CONT ×2 (12:10→14:38)
[2024-07-03] MEDS: ACETAMINOPHEN 500 MG TABLET 1000 MG PO (12:20)
[2024-07-03] MEDS: KETOROLAC 15 MG/ML VIAL (*BKC) IV PUSH (12:20)
[2024-07-03 12:31] LABS: BEDSIDEPREGUCG Negative (Negative)
--- NOTE | 2024-07-03 12:40 | WPDANESEPPF ---
Anes - Initial Pre Proc Eval Procedure: Operation Date: 07/03/24 14:30 Proposed Procedures p Open Reduction Internal Fixation Left Ankle Fracture - Dominick eKys MD Date/Time: 07/03/24 12:40 Surgeon: Dominick Keys MD Pre Op Diagnosis: trimalleolar fracture left ankle Patient Data Age: 24 Gender: F Height: 1.63 m Weight: 90 kg Last Vital Signs Temp 98.8 F 07/02/24 22:00 Pulse 76 07/02/24 22:00 Resp 16 07/02/24 22:00 BP 144/60 H 07/02/24 22:00 Pulse Ox 99 07/03/24 09:10 O2 Del Method Room Air 07/03/24 09:24 Allergies Allergy/AdvReac Type Severity Reaction Status Date / Time No Known Allergies Allergy Verified 07/02/24 14:10 Home Medications Medication Instructions Recorded Confirmed Type clindamycin phosphate 1 % topical 1 applic topical HS 07/02/24 07/02/24 History gel escitalopram oxalate 10 mg tablet 10 mg PO DAILY 07/02/24 07/02/24 History Laboratory Tests 07/03/24 12:15 POC Urine HCG, Qual Negative (Negative) Patient hx anesthesia problems: none Family hx anesthesia problems: none Results Review: All pre-operative results and documents have been reviewed as part of the pre-operative evaluation. [facility] Past Medical History Medical History Healthy female adult Family History Family History Father Type 1 diabetes Mother Uterine sarcoma Social History Social History Smoking status: Never smoker Alcohol intake: former Substance use: former Substance use type: marijuana Do You Feel Safe in your Home?: Yes Lack of Transportation: No Lack of Food: Never True Current Housing: I Have Housing Concerned About Future Housing: No Difficulty Paying Gas/Electric Bills: No Difficulty Paying for Meds: No Currently Unemployed: No Education: Associate Degree Difficulty w/ Childcare or Family Care: No Spiritual care concerns: No Anes - Eval Final PreProcedure Day of Procedure 07/03/24 12:40 Patient weight: obese Lungs: normal air movement Airway: Mallampati scale class II and special considerations (Small mouth noted. ) Neurological: alert and oriented Last oral intake: >/= 8 hours ASA classification: II Emergent: no Anesthetic plan: proceed Anesthesia type and monitoring: general LMA and standard monitoring Results Review: All pre-operative results and documents have been reviewed as part of the pre-operative evaluation. BMI 34. Informed Consent: The patient's anesthetic plan and its attendant risks and benefits were discussed with the patient/family/POA. Questions were solicited and answers provided to the satisfaction of the patient/family/POA.
[2024-07-03] MEDS: ceFAZolin 2 GM/D5W 50 ML 2 GM/50 ML BAG IVPB (13:41)
[2024-07-03] MEDS: BUPIVACAINE/EPINEPHRINE 0.5% 50 ML VIAL 30 ML INFILTRATE (13:42)
--- NOTE | 2024-07-03 14:44 | P.OP_ITS ---
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 Presents for operative treatment. Description of Procedure After informed consent, the operative extremity was marked in the preoperative holding area. Patient received intravenous antibiotics. Patient was then taken to the operating room and underwent general anesthesia by the anesthesia team. Positioned supine on the operating room table with a soft bump under the ipsilateral hip. A time-out was performed confirming the patient, site of the surgery, operative plan. Lower extremity then prepped and draped in the usual sterile surgical fashion using ChloraPrep skin solution. Foot and ankle exsanguinated and a thigh tourniquet inflated to 275 mmHg. Longitudinal incision made over the lateral ankle distal fibula with a 15 blade knife. Hemostasis controlled with electrocautery. Full-thickness soft tissue flaps developed and the fascia was incised in line with the skin incision. Fracture identified and cleared with a dental pick, irrigation and rongeur. Fracture reduced and held with bone-holding clamp. Image intensification confirmed reduction of the fracture and the ankle mortise. Fixation achieved with Neutralization with a lateral plate with unicortical screws distal to fracture and bicortical screws proximal to the fracture. Good alignment and stability of the fracture noted. Image intensification used to confirm reduction of the fracture and placement of the hardware. Medial side then addressed. Longitudinal incision made with a 15 blade knife over the medial malleolus fracture. Hemostasis controlled with electrocautery. Fascia incised in line with skin incision. Periosteum cleared from the medial malleolus fracture. Medial side of the joint inspected and noted to have mild amount of trauma to the chondral surface. Thorough irrigation of the ankle joint and suctioned out. Fracture reduced and provisionally pinned. Fixation achieved with 4.0 mm partially threaded cancellous screws x2 placed in cannulated screw fashion. Image intensification confirmed reduction of the fracture and placement of the hardware. Stress of the ankle performed with good stability of the ankle mortise in all directions. Posterior malleolus noted to be reduced and stable. Wounds thoroughly irrigated with antibiotic solution. Fascia repaired with 00 Vicryl interrupted suture. Subcutaneous tissue repaired with 000 Monocryl interrupted suture and Skin approximated with 4-0 nylon. Sterile dressings applied followed by bulky dressing and splint. Patient awoken from anesthesia, extubated and taken to the recovery room in stable condition. All sponge, needle and instrument counts correct at the end of the case. Palpable dorsalis pedis pulse noted prior to dressing. Implants Arthrex 1/3 tubular plate, 6 hole with 6 screws. 4.0 mm partially-threaded cannulated screw x2 medially Estimated Blood Loss 50 Tourniquet Time Total Tourniquet Time: 50 Drains No Packing No Pathology None sent Complications None Condition Stable Disposition PACU [facility] Billing Surgery - Charge Forward: Surgery Billing ([id number])
--- NOTE | 2024-07-03 16:07 | PC.NURSE ---
Pt returned back to floor following surgery after completing PACU Phase.
[2024-07-03] MEDS: IBUPROFEN IV 800 MG/200 ML 800 MG/200 ML BAG 400 MG IVPB (16:41)
[2024-07-03] MEDS: SENNA/DOCUSATE SODIUM TABLET 2 TAB PO (16:42)
[2024-07-03] MEDS: ceFAZolin 1 GM/NS 50 ML 1 GM/50 ML BAG IVPB (20:23)
[2024-07-04 01:33] VITALS: BP 120/52; PULSE 61; RESP 17; TEMP 36.1; O2SAT 100
[2024-07-04] MEDS: HYDROcodone/acetaminophen (*CRX) 5-325 MG TABLET 1 TAB PO ×2 (02:36→08:07)
[2024-07-04] MEDS: ceFAZolin 1 GM/NS 50 ML 1 GM/50 ML BAG IVPB (05:12)
[2024-07-04 05:33] VITALS: BP 104/44; PULSE 63; RESP 16; TEMP 36.2; O2SAT 99
[2024-07-04 08:00] VITALS: O2SAT 100
[2024-07-04] MEDS: ESCITALOPRAM OXALATE 10 MG TABLET PO (08:07)
[2024-07-04] MEDS: polyethylene glycoL 3350 17 GM POWD.PACK PO (08:07)
[2024-07-04] MEDS: SENNA/DOCUSATE SODIUM TABLET 2 TAB PO (08:08)
--- OUTSIDE RECORDS SUMMARY | 2024-07-07 07:06 | XMS_ITS | Clinical Summary ---
Author Organization [facility] Address [address] [place] [address] Phone Care Team Providers Care Ophthalmic Aide Name Role Phone Unavailable Primary Care Provider [...] HPV VACCINES Completed 12/21/2014, 05/28, 12/11/2013 Insurance [facility] [place] [id number]
--- OUTSIDE RECORDS SUMMARY | 2024-07-07 07:06 | XMS_ITS | Referral Summary ---
Author Organization [facility] er Address [address] [place] [address] Care Team Providers Care Php Magento Developer Name Role Phone Shelly Lemus NP Primary Care Provider [phone] Encounters Date Type Department Care Team Description 05/28/2024 Orders Only [address] [id number] Mary Piña, RN 05/27/2024 Orders Only [address] [phone] Mary Piña RN 05/20/2024 Results Follow-Up [address] [phone] Aracelis Almeida MD 05/14/2024 3:00 PM CDT Office Visit [address] [phone] Felicia Munguia NP Routine gynecological examination (Primary Dx) 04/29/2024 Orders Only [address] [phone] Aracelis Almeida MD 04/29/2024 Orders Only [facility] [address] [place] [id number] Felicia Munguia, COMB TENDER from Last 3 Months Allergies No known [...] normal. Discussed with patient she may utilize [id number] B12 500 mcg daily. Urinary incontinence 08/10/2022 [...] in the past. She will contact the [employer] if she wishes to start medication and [...] down Lexapro. She will send message through [employer] regarding updates since she will be going back to school. If symptoms persist or worsen please call or return to clinic. Patient will schedule Pap and wellness exam. Assessment & Plan (08/10/2022 2:19 PM CDT): Unable to tolerate Adderall. Seems to be stable in school at this time. Assessment & Plan (02/13/2022 3:43 PM CARPET SEWING MACHINE OPERATOR): Chronic and worsening since she has not [...] Merchant. Patient will be moving back to [facility] for [facility]ester. She will follow-up in 3 [...] plan. Assessment & Plan (02/13/2022 3:43 PM CARPET SEWING MACHINE OPERATOR): Continue Lexapro 10 mg daily.. Pt agrees [...] medication(s) Assessment & Plan (02/11/2021 11:28 AM CARPET SEWING MACHINE OPERATOR): Patient doing well on Lexapro and BuSpar [...] medication(s) Assessment & Plan (02/13/2022 3:41 PM CARPET SEWING MACHINE OPERATOR): Chronic and stable. Continue current medication(s) Assessment [...] plan. Assessment & Plan (03/26/2020 8:21 AM CARPET SEWING MACHINE OPERATOR): Patient seems to be improving on wellbutrin [...] plan. Assessment & Plan (03/11/2020 8:57 AM CARPET SEWING MACHINE OPERATOR): Wean off Effexor and start Wellbutrin since [...] provided. Assessment & Plan (02/13/2022 3:30 PM CARPET SEWING MACHINE OPERATOR): BMI Follow-up includes: education provided. Assessment & Plan (10/12/2021 10:48 AM CDT): BMI Follow-up includes: education provided. Assessment & Plan (08/30/2021 3:23 PM CDT): BMI Follow-up includes: education provided. Assessment & Plan (05/26/2021 12:31 PM CDT): BMI Follow-up includes: education provided. Assessment & Plan (02/11/2021 11:25 AM CARPET SEWING MACHINE OPERATOR): BMI Follow-up includes: education provided. Assessment & Plan (07/09/2020 1:29 PM CDT): BMI Follow-up includes: education provided. Assessment & Plan (03/26/2020 8:20 AM CARPET SEWING MACHINE OPERATOR): BMI Follow-up includes: education provided. Assessment & Plan (03/11/2020 9:00 AM CARPET SEWING MACHINE OPERATOR): BMI Follow-up includes: education provided. Resolved Problems [...] 23 Assessment & Plan (02/11/2021 11:26 AM CARPET SEWING MACHINE OPERATOR): Clinical presentation of exercise-induced asthma however will [...] 07/09/2020 Assessment & Plan (03/11/2020 8:56 AM CARPET SEWING MACHINE OPERATOR): Will COVID test today since patient is returning to school. Closed oblique fracture of w aist of scaphoid bone of right wrist 06/13/2018 03/11/2020 Immunizations Immunization Administration Dates Next Due COVID-19 mRNA ([employer]) 0.3 m L (30 mcg) vaccine (12 [...] on file Legal Sex Female 12:30 AM CARPET SEWING MACHINE OPERATOR Gender Identity Not on file Sexual Orientation [...] 4:08 PM CDT) CLINICAL INFORMATION: None given [employer] [facility] LMP UNKNOWN [employer] [facility] Bx NONE GIVEN [employer] [facility] SOURCE: Cervix, Endocervix [employer] [facility] Pap, specimen adequacy [employer] [facility] Comment: Satisfactory for evaluation. Endocervical/transformation zone component present. Age and/or menstrual status not provided HPV interp Cytology Results: Negative for intraepithelial lesion or malignancy. 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 [employer] [facility] COMMENTS This Pap test has been evaluated with computer assisted technology. [employer] [facility] [employer] [facility] [employer] [facility] Comment: TLS, CT(ASCP) CT Screening Location: [address] [address] Comment [employer] [facility] Comment: EXPLANATORY NOTE: The Pap is a [...] ORDERABL ES Final Result Performing Organization Address [facility]/ZIP Co de Phone Number [employer] [address] * N. gonorrhoeae/C. trachomatis Amplification (05/14/2024 4:08 PM CDT) C. trachomatis RNA NOT DETECTED NOT DETECTED [employer] [place] N. gonorrhoeae RNA NOT DETECTED NOT DETECTED [employer] [place] Comment [employer] [place] Comment: The analytical performance characteristics of this assay, when used to test SurePath(TM) specimens have been determined by [employer]. The modifications have not been cleared or approved by the FDA. This assay has been validated pursuant to the CLIA regulations and is used for clinical purposes. For additional information, please refer to https://education.Wrike.Pagevamp/faq/OMW284 (This link is being provided for information/ educational purposes only.) 05/14/2024 4:08 PM CDT 05/16/2024 3:49 AM CDT Aracelis Almeida MD LAB MICROBIOLOGY - GE NERAL ORDERABLES Final Result Performing Organization Address City/[facility]/ZIP Co de Phone Number [employer] [address] [address] from Last 3 Months Insurance [employer] OPEN ACCESS [facility] [place] [address] [facility] [place] [facility] Care Teams Php Magento Developer Relationship Specialty Start Date End Date Shelly Lemus NP [address] [place] [address] PCP - General Family Medicine 03/11/20
--- OUTSIDE RECORDS SUMMARY | 2024-07-07 07:06 | XMS_ITS | Encounter Summary ---
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
--- OUTSIDE RECORDS SUMMARY | 2024-07-07 07:06 | XMS_ITS | Clinical Summary ---
Author Organization [facility] Address [address] [place] [address] Care Team Providers Care Performing Artist Name Role Phone Shelly Lemus NP Primary Care Provider [phone] Allergies No known active allergies Medications busPIRone [...] normal. Discussed with patient she may utilize bwet-vel-fxgfhaz B12 500 mcg daily. Urinary incontinence 08/10/2022 [...] in the past. She will contact the [facility] if she wishes to start medication [...] down Lexapro. She will send message through [employer] regarding updates since she will be going back to school. If symptoms persist or worsen please call or return to clinic. Patient will schedule Pap and wellness exam. Assessment & Plan (08/10/2022 2:19 PM CDT): Unable to tolerate Adderall. Seems to be stable in school at this time. 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 She will follow-up in [...] plan. Assessment & Plan (02/13/2022 3:43 PM SODA FOUNTAIN OPERATOR): Continue Lexapro 10 mg daily.. Pt [...] medication(s) Assessment & Plan (02/11/2021 11:28 AM SODA FOUNTAIN OPERATOR): Patient doing well on Lexapro and [...] medication(s) Assessment & Plan (02/13/2022 3:41 PM SODA FOUNTAIN OPERATOR): Chronic and stable. Continue current medication(s) [...] plan. Assessment & Plan (03/26/2020 8:21 AM SODA FOUNTAIN OPERATOR): Patient seems to be improving on [...] plan. Assessment & Plan (03/11/2020 8:57 AM SODA FOUNTAIN OPERATOR): Wean off Effexor and start Wellbutrin [...] provided. Assessment & Plan (02/13/2022 3:30 PM SODA FOUNTAIN OPERATOR): BMI Follow-up includes: education provided. Assessment & Plan (10/12/2021 10:48 AM CDT): BMI Follow-up includes: education provided. Assessment & Plan (08/30/2021 3:23 PM CDT): BMI Follow-up includes: education provided. Assessment & Plan (05/26/2021 12:31 PM CDT): BMI Follow-up includes: education provided. Assessment & Plan (02/11/2021 11:25 AM SODA FOUNTAIN OPERATOR): BMI Follow-up includes: education provided. Assessment & Plan (07/09/2020 1:29 PM CDT): BMI Follow-up includes: education provided. Assessment & Plan (03/26/2020 8:20 AM SODA FOUNTAIN OPERATOR): BMI Follow-up includes: education provided. Assessment & Plan (03/11/2020 9:00 AM SODA FOUNTAIN OPERATOR): BMI Follow-up includes: education provided. Resolved [...] 22 Assessment & Plan (02/11/2021 11:26 AM SODA FOUNTAIN OPERATOR): Clinical presentation of exercise-induced asthma however [...] 07/09/2020 Assessment & Plan (03/11/2020 8:56 AM SODA FOUNTAIN OPERATOR): Will COVID test today since patient is returning to school. Closed oblique fracture of w aist of scaphoid bone of right wrist 06/13/2018 03/11/2020 Encounters Date Type Department Care Team Description 05/28/2024 Orders Only [address] [id number] Mary Piña RN 05/27/2024 Orders Only [address] [phone] Mary Piña RN 05/20/2024 Results Follow-Up [address] [address] Aracelis Almeida MD 05/14/2024 3:00 PM CDT Office Visit [address] [phone] Felicia Munguia NP Routine gynecological examination (Primary Dx) 04/29/2024 Orders Only [address] [address] Aracelis Almeida MD 04/29/2024 Orders Only [address] [phone] Felicia Munguia NP from Last 3 Months Immunizations Immunization Administration Dates Next Due COVID-19 mRNA ([employer]) 0.3 m L (30 mcg) vaccine (12 [...] on file Legal Sex Female 12:30 AM SODA FOUNTAIN OPERATOR Gender Identity Not on file Sexual [...] 4:08 PM CDT) CLINICAL INFORMATION: None given [facility] LMP UNKNOWN [facility] Previous Pap NONE GIVEN [facility] Prev. Bx NONE GIVEN [facility] SOURCE: Cervix, Endocervix [facility] Pap, specimen adequacy [facility] Comment: Satisfactory for evaluation. Endocervical/transformation zone component present. Age and/or menstrual status not provided HPV interp Cytology Results: Negative for intraepithelial lesion or malignancy. 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 [facility] COMMENTS This Pap test has been evaluated with computer assisted technology. [facility] Screening [facility] Comment: TLS, CT(ASCP) CT Screening Location: [place] [address] Comment [facility] Comment: EXPLANATORY NOTE: The Pap is [...] ORDERABL ES Final Result Performing Organization Address City/[facility]/ZIP Co de Phone Number [facility] [address] [address] * N. gonorrhoeae/C. trachomatis Amplification (05/14/2024 4:08 PM CDT) C. trachomatis RNA NOT DETECTED NOT DETECTED [facility] N. gonorrhoeae RNA NOT DETECTED NOT DETECTED [facility] [place] Comment [facility] Comment: The analytical performance characteristics of this assay, when used to test SurePath(TM) specimens have been determined by [facility]. The modifications have not been cleared or approved by the FDA. This assay has been validated pursuant to the CLIA regulations and is used for clinical purposes. For additional information, please refer to https://education.[employer]/faq/PFS240 (This link is being provided for information/ educational purposes only.) 05/14/2024 4:08 PM CDT 05/16/2024 3:49 AM CDT Aracelis Almeida MD LAB MICROBIOLOGY - GE NERAL ORDERABLES Final Result Performing Organization Address City/[facility]/ZIP Co de Phone Number [facility] [address] [place] [address] from Last 3 Months Insurance [facility] [place] [address] [facility] Care Teams Performing Artist Relationship Specialty Start Date End Date Shelly Lemus NP [address] [place] [address] PCP - General Family Medicine 03/11/20
--- NOTE | 2024-07-14 15:44 | PM.DS ---
DS: Admitting Diagnosis Discharge Date 07/04/24 Admitting Diagnosis Left ankle trimalleolar fracture DS: Discharge Diagnosis Discharge Diagnosis (1) Closed trimalleolar fracture: Qualifiers: Encounter type: initial encounter Laterality: left Qualified Code(s): S82.852A - Displaced trimalleolar fracture of left lower leg, initial encounter for closed fracture Code(s): S82.853A - Displaced trimalleolar fracture of unspecified lower leg, initial encounter for closed fracture Status: Acute Assessment and Plan: splint left ankle. Ice and elevate. Nonweightbearing with walker. Pain control reviewed. Plan splint left ankle. Ice and elevate. Nonweightbearing with walker. Pain control reviewed. DS: Summary Hospital Course Reason for hospitalization: Left ankle fracture Hospital Course: operating room for fixation July 03. Discharge home in stable condition. Status at Discharge Cognitive/behavioral status at discharge: Normal Functional status at discharge: uses cane/walker Overall status at discharge: patient is not back to baseline Time Spent with Patient Time attestation: Total time spent providing and/or coordinating discharge services: Exam Const: General: No confusion Orientation/consciousness: No confusion HENMT: Head: normal to inspection, normocephalic and atraumatic Neck: Neck: supple and nontender Chest: Chest palpation & inspection: normal inspection of the chest Resp: Effort & Inspection: normal respiratory effort and no audible wheezes Cardio: Rate: regular rate : General: Yes deferred Skin: General skin exam: no rashes or lesions noted Neuro: General: No confusion Extrem: General: capillary refill normal Right upper extremity: normal to inspection Left upper extremity: normal to inspection Right lower extremity: normal to inspection and hip/thigh Details: normal to inspection Left lower extremity: hip/thigh Details: normal to inspection, knee Details: normal to inspection and knee ligament exam normal Details: anterior drawer test normal, valgus stress test normal, varus stress test normal and Babak's test normal, ankle (no calf tenderness) Details: abnormal to inspection ( Obvious swelling at the ankle joint), tenderness ( lateral malleolus), swelling (moderate lateral ankle), abnormal ROM Details: pain with active ROM Details: with plantar flexion and with dorsiflexion and with range as follows ( limited secondary to injury), crepitus Details: at the lateral malleolus and other ( good capillary refill in toes, 2+ DP pulse) and foot Details: normal capillary refill, toes with normal ROM, vascular exam Details: dorsalis pedis pulse present and motor-sensory exam Psych: Affect: normal affect Discharge Plan Discharge Attending physician on discharge: Guero Duarte Consulting providers: Tito Owens; Bonnie Bucio; Alex Gamboa Discharging Clinician: Guero Duarte Anticipated Discharge Date/Time: 07/03/24 18:00 Patient Disposition: Home Activity: follow weight bearing status Diet: as tolerated and regular Wound Care Instructions: keep dressing dry and other - see discharge instructions Discharge Instructions: GUERO DUARTE M.D. [facility] [address] [place] [address] [address] [place] [address] POST OPERATIVE DISCHARGE INSTRUCTIONS FOOT/ANKLE SURGERY Elevate the involved extremity on pillows. For the first 48 hours, make sure that the foot is above the level of your heart. Carefully observe the exposed toes for evidence of swelling or discoloration. If the dressing is uncomfortable or tight, call the Dr’s office. Keep the dressing clean and dry. Remove dressing only as directed by doctor. If the pain medication does not provide adequate relief, please call Dr’s office. Take other medication as prescribed. Please call Dr’s office to confirm follow-up appointment for 1 week. If you have any questions, please call the Dr’s office. Diet as tolerated. Activity:___X____Restrictions as follows: no weight operative leg; crutches or walker for ambulation Do not drive for 24 hours, unless otherwise instructed. Additional instructions: Patient Instructions: Antibiotic Form, Crutch Instructions (DC), Splint Care (DC) Patient Language: Estonian Stand Alone Forms: General Discharge Information Follow-up/Referrals: Guero Duarte MD [Physician] - 07/16/24 11:00 am Discharge Medications: New polyethylene glycol 3350 17 gram powder in packet 17 g PO DAILY PRN (Reason: constipation) Qty: 14 1RF ibuprofen 800 mg tablet 800 mg PO TID PRN (Reason: pain) Qty: 30 1RF sennosides-docusate sodium [Senna with Docusate Sodium] 8.6-50 mg tablet 1 tab-cap PO BID PRN (Reason: constipation) Qty: 20 1RF acetaminophen 325 mg Tablet 650 mg PO Q4H PRN (Reason: Mild Pain (1-3) Or Fever) Qty: 0 0RF ondansetron 8 mg tablet,disintegrating 8 mg PO Q8H PRN (Reason: nausea and vomiting) Qty: 10 1RF Continued clindamycin phosphate 1 % gel 1 applic TOPICAL HS escitalopram oxalate 10 mg tablet 10 mg PO DAILY hydrocodone-acetaminophen 5-325 mg tablet 1 tablet PO Q3-4H PRN (Reason: Pain Rated 4-6) Qty: 30 0RF Discontinued ondansetron 8 mg tablet,disintegrating 8 mg PO Q6-8H PRN (Reason: nausea and vomiting) Qty: 10 2RF Rx Instructions: Disintegrating tablet okay polyethylene glycol 3350 17 gram/dose powder 17 g PO DAILY PRN (Reason: constipation) Qty: 119 1RF ibuprofen 800 mg tablet 800 mg PO Q6H PRN (Reason: pain) Qty: 60 1RF sennosides-docusate sodium 8.6-50 mg tablet 1 tab-cap PO BID Qty: 30 1RF Date of admission: 07/02/24 17:17 Primary Care Provider: Aracelis Almeida Admitting Provider: Guero Duarte Attending physician on admission: Guero Duarte Condition: Stable
== END 2024-07-04 09:20 | disposition home or self-care (01) ==
LOC: ANHED 15:13 → ANH3MEDSUR 19:42
PROVIDERS: Admitting Provider Orthopaedic Surgery; Emergency Provider Emergency Medicine; Visit Provider Orthopaedic Surgery
PROC: (CPT 27822; principal; 2024-07-03 14:30)
DX: S82.852A Displaced trimalleolar fracture of left lower leg, initial encounter for closed fracture (principal); W18.39XA Other fall on same level, initial encounter; E66.9 Obesity, unspecified; Z68.34 Body mass index [BMI] 34.0-34.9, adult
CPT/HCPCS: 27822; 27818; 73600; 73610; 96361; 96374; 96375; 96376; 97161; 97165; 99199; 99285; A9270; C1713; C1769; G0378; J0690; J1100; J1171; J1741; J1885; J2003; J2250; J2270; J2405; J2704; J3010; J7030; J7120

== ENCOUNTER 2025-01-08 01:14 | Day surgery (SDC) | payer BC, SELFPAY ==
--- NOTE | 2024-12-24 14:38 | SUR.PREOP ---
[facility] has started construction of its new state of the art ER which will open Spring 2026. With this, we anticipate parking may be a challenge for some our surgical patients and families. Parking spaces are limited but are available for all Surgical, obstetrics, and ER patients sharing this lot. If you arrive and find you are having a hard time finding a parking space, please note that we understand the challenges, please drive around the hospital and park near Hospital Entrance 1. When you enter this entrance, you can ask a volunteer to direct or take you back to the surgical waiting area to check in. We appreciate everyone?s understanding of these expected challenges while we build for your future. Report to the Outpatient Waiting Room, entrance under the green pavilion located off [address], at time _6AM__ on date __01/08/25 . Planned Procedure Time: _0730AM_.? Time changes happen often and if your time is changed the preop area will call you the afternoon before. - You and your visitor will be asked to self-screen and do not enter if you have any COVID symptoms. Please call surgeon if you need to reschedule. - A mask is optional within the hospital at this time. Patients may have clear liquids (water, carbonated beverages, clear teas, apple juice) until 3 hours prior to surgery with a maximum of 20 ounces. - No food from midnight until time of surgery and no smoking, or chewing tobacco (or any form of nicotine). No chewing gum, candy or mints. Take only the following medications with a SIP of water on the morning of surgery: ____escitalopram___ DO NOT STOP ANY OF YOUR OTHER PRESCRIPTION MEDICATIONS PRIOR TO SURGERY EXCEPT THE FOLLOWING Hold all vitamins and supplements for 3 days per anesthesiologist. Medications to discontinue per physician ___None___ Date to take last dose of vitamins__01/04/25__ Please no make-up, nail occitan, hairspray, perfume, deodorant, or body powder the day of surgery.? No jewelry (including any body piercings) or valuables the day of surgery, leave them at home.? Please take a shower or bath the night before, or the morning of, surgery with an antibacterial soap.? Wear comfortable, loose fitting clothing.? - Jewelry must be removed prior to entering the operating room.? Rings and piercings that are not removed may be cut off. - The hospital will not accept responsibility for valuables.? - Please leave all valuables, including medications, at home the day of surgery. If you are going home after surgery, a licensed courier driver must drive you home.? - NO public transportation without another adult if you receive anesthesia. - We recommend that an adult stay with you for 24 hours following discharge. - We also recommend that you do not drive, make important decision, drink alcoholic beverages, or take any drugs that were not prescribed by your health care provider for at least 24 hours after your discharge time. Follow any additional instructions given to you from your surgeon. Telephone instructions given to __Jane___and asked if any additional questions and then verbalized understanding. Patient advised to call surgeon office or pre surgery nurse liaison [phone] if any additional questions.
[2024-12-24 14:47] VITALS: BMI 34.4
--- NOTE | 2025-01-07 12:38 | PM.IMHP ---
H&P: HPI History of Present Illness Date/Time: 01/07/25 12:38 Chief Complaint: left ankle painful internal hardware Narrative: 24-year-old woman 7 months status post ORIF left ankle fracture. She has pain medial and lateral ankle with prominence of the hardware. Problems with shoe wear and activity. She presents for operative removal. Review of Systems Constitutional: Constitutional: Denies fever(s) Eyes: Eyes: Denies blurry vision ENT: Reports Normal hearing present Cardiovascular: Cardiovascular: Denies chest pain and Denies dyspnea Respiratory: Respiratory: Denies dyspnea and Denies wheezing Gastrointestinal: Gastrointestinal: Denies abdominal pain Genitourinary: Genitourinary: Denies urinary urgency Musculoskeletal: Musculoskeletal: Reports as per HPI and Denies numbness Integumentary/Breasts: Skin/Breast: Denies changing lesions and Denies sores Neurologic: Reports Normal hearing present, Denies behavioral changes, Denies confusion, Denies numbness and Denies convulsions Psychiatric: Psychiatric: Denies behavioral changes, Denies confusion and Denies hallucinations Endocrine: Endocrine: Denies heat intolerance Hematologic/Lymphatic: Hematologic/Lymphatic: Denies easy bleeding Allergic/Immunologic: Allergic/Immunologic: Denies wheezing PMFSH Past Medical History Medical History Painful orthopaedic hardware Healthy female adult Family History Family History Father Type 1 diabetes Mother Uterine sarcoma Social History Social History Smoking status: Never smoker Alcohol intake: current Alcohol use details: 1/month Substance use: former Substance use type: marijuana Do You Feel Safe in your Home?: Yes Lack of Transportation: No Lack of Food: Never True Current Housing: I Have Housing Concerned About Future Housing: No Difficulty Paying Gas/Electric Bills: No Difficulty Paying for Meds: No Currently Unemployed: No Education: Associate Degree Difficulty w/ Childcare or Family Care: No Living arrangements: with friend(s) Spiritual care concerns: No Meds Home Medications and Allergies Home Medications ?Medication ?Instructions ?Recorded ?Confirmed ?Type clindamycin phosphate 1 % topical 1 applic topical HS 07/02/24 12/24/24 History gel escitalopram oxalate 10 mg tablet 10 mg PO DAILY 07/02/24 12/24/24 History mupirocin 2 % topical ointment 1 applic topical BID #22 grams 08/20/24 12/24/24 Rx ([facility]) multivitamin (Daily Multi-Vitamin 1 tablet PO DAILY 12/24/24 12/24/24 History tablet) Allergies Allergy/AdvReac Type Severity Reaction Status Date / Time No Known Allergies Allergy Verified 12/24/24 14:45 Exam Const: General: No confusion Orientation/consciousness: No confusion HENMT: Head: normal to inspection, normocephalic and atraumatic Ears: hearing grossly normal bilaterally Eyes: Conjunctivae: conjunctivae normal Sclera: sclerae normal Neck: Neck: supple and nontender Chest: Chest palpation & inspection: normal inspection of the chest Resp: Effort & Inspection: normal respiratory effort and no audible wheezes Cardio: Rate: regular rate Rhythm: regular rhythm : General: Yes deferred Skin: General skin exam: no rashes or lesions noted Neuro: General: No confusion Extrem: General: capillary refill normal Right upper extremity: normal to inspection Left upper extremity: normal to inspection Right lower extremity: normal to inspection and hip/thigh Details: normal to inspection Left lower extremity: hip/thigh Details: normal to inspection, knee Details: normal to inspection and knee ligament exam normal Details: anterior drawer test normal, valgus stress test normal, varus stress test normal and Babak's test normal, ankle (no calf tenderness) Details: abnormal to inspection ( Obvious swelling at the ankle joint), tenderness ( lateral malleolus), swelling (moderate lateral ankle), abnormal ROM Details: pain with active ROM Details: with plantar flexion and with dorsiflexion and with range as follows ( limited secondary to injury), crepitus Details: at the lateral malleolus and other ( good capillary refill in toes, 2+ DP pulse) and foot Details: normal capillary refill, toes with normal ROM, vascular exam Details: dorsalis pedis pulse present and motor-sensory exam Psych: Affect: normal affect Assessment and Plan Assessment and plan (1) Painful orthopaedic hardware: Code(s): T84.84XA - Pain due to internal orthopedic prosthetic devices, implants and grafts, initial encounter Status: Acute Assessment and Plan: 7 months left ankle trimalleolar fracture. Radiographs show good healing. Her pain is getting worse. Some mild residual swelling. Hampered by prominence of the lateral plate and screws. Prominence noted on exam as well as tenderness. At risk for ulceration. Patient desires removal of the hardware. Plan Discussed nonoperative and operative treatment options with the patient. Risks and benefits of each as well as alternatives were reviewed. All of the patient's questions were answered. The risks of surgery reviewed including but not limited to: Neurovascular damage, wound complication, infection, blood clot, pulmonary embolus, stroke, myocardial infarction, and anesthetic risks up to and including . Continued pain and possible dysfunction were explained. Specific risks of the procedure including later recurrence of deformity. No guarantees were offered. If hardware used, discussed risk of failure/ breakage and possible need for removal. If complications occur, the patient understands the need for further treatment, possible further surgery. Patient verbalizes understanding and wishes to proceed. Discussed protected weight-bearing with fracture boot for 3 weeks after surgery. PLAN: Removal hardware left ankle. (2) Closed trimalleolar fracture: Qualifiers: Encounter type: sequela Laterality: left Qualified Code(s): S82.852S - Displaced trimalleolar fracture of left lower leg, sequela Code(s): S82.853A - Displaced trimalleolar fracture of unspecified lower leg, initial encounter for closed fracture Status: Acute
--- OUTSIDE RECORDS SUMMARY | 2025-01-07 13:00 | XMS_ITS | Encounter Summary ---
Author Organization [facility] Healthcare Address [address] [place] [address] Care Team Providers Care Parts Runner Name Role Phone Felicia Munguia NP Primary Care Provider [phone] Reason for Referral * Diagnostic Imaging (Routine) - Authorized Specialty Diagnoses / Procedures Referred By Jason t Referred To Contact Diagnoses Pelvic pain Procedures US Pelvis Complete Felicia Munguai NP [address] [place] [address] Phone: tel: fax: [facility] Medical Group Referral ID Status Reason Start Date Expiration Date V isits Requested Visits Authorized [id number] Authorized 01/07/2025 02/06/2026 1 1 OR PROCUREMENT MANAGER Reason for Visit * Reason Comments ADHD Encounter Details Date Type Department Care Team (Latest Contact Info) Description 01/07/2025 1:00 PM SENIOR PROCUREMENT MANAGER Office Visit [facility] [address] [place] [address] Felicia Munguia NP [address] [place] [address] Pelvic pain (Primary Dx); ADHD (attention deficit hyperactivity disorder), combined type; TOM (generalized anxiety disorder); Moderate episode of recurrent major depressive disorder (HCC); Moderate binge-eating disorder; Class 2 obesity due to excess calories without serious comorbidity with body mass index (BMI) of 35.0 to 35.9 in adult Social History Tobacco Use Types Packs/Day Years Used Date Smoking Tobacco: Never Smokeless Tobacco: Never Alcohol Use Standard Drinks/Week Comments Defer 0 (1 standard drink = 0.6 oz pur e alcohol) PHQ-2 Answer Date Recorded PHQ-2 Total Score (If total score is 3 or more points, staff should administer the PHQ-9) 2 01/07/2025 PHQ-9 Answer Date Recorded PHQ-9 Total Score 18 01/07/2025 Comments No Sex and Gender Information Value Date Recorded Sex Assigned at Not on file Legal Sex Female 12:30 AM SENIOR PROCUREMENT MANAGER Gender Identity Not on file Sexual Orientation Not on file documented as of this encounter Last Filed Vital Signs Vital Sign Reading Time Taken Comments Blood Pressure 112/70 01/07/2025 1:06 PM SENIOR PROCUREMENT MANAGER Pulse 82 01/07/2025 1:06 PM SENIOR PROCUREMENT MANAGER Temperature 37.1 C (98.7 F) 01/07/2025 1:06 PM SENIOR PROCUREMENT MANAGER Respiratory Rate - - Oxygen Saturation 99% 01/07/2025 1:06 PM SENIOR PROCUREMENT MANAGER Inhaled Oxygen Concentration - - Weight 94.9 kg (209 lb 2 oz) 01/07/2025 1:06 PM SENIOR PROCUREMENT MANAGER Height 162.6 cm (5' 4) 01/07/2025 1:06 PM SENIOR PROCUREMENT MANAGER Body Mass Index 35.9 01/07/2025 1:06 PM SENIOR PROCUREMENT MANAGER documented in this encounter Functional Status documented as of this encounter Ordered Prescriptions Prescription Sig Dispense Quantity Refills Last Filled Start Date End Date atomoxetine (STRATTERA) 40 mg capsuleIndications: Attention-Deficit Hyperactivity Disorder Take 1 capsule (40 mg total) by mouth daily 30 capsule 01/07/2025 documented in this encounter Progress Notes * Felicia Munguia NP - 01/07/2025 1:00 PM CST Images from the original note were not included. Subjective/Objective Patient ID: Jane Reyez is a 24 y.o. female. This patient has verbally consented to recording this visit in order to utilize AI technology in generating this note. CHIEF COMPLAINT ADHD HPI History of Present Illness Jane Reyez is a 24 year old female who presents with concerns about ADHD and associated symptoms. She describes fluctuating performance, with some days being productive and others marked by difficulty completing tasks, anxiety, and depression. Sleep patterns are irregular, with excessive sleep onweekends. She feels close to organizing her life but struggles to maintain it. As a child, she was irritable, with siblings joking about her having 'anger problems.' She managed well at school but was more irritable at home. She reports that her boyfriend notices her irritability, though she manages well academically. She reports difficulties with attention, organization, and impulse control, including making careless mistakes, difficulty sustaining attention, and losing necessary items. She also experiences restlessness, excessive talking with family, and difficulty waiting her turn. She reports episodes of binge eating, feeling distressed about these episodes, and overeating five to six days a week. No prior diagnosis of eating disorders. Her medication history includes Lexapro 10 mg daily. She previously used Adderall, which was effective but caused heart palpitations, and Strattera, which she discontinued. She has also been on Effexor and Wellbutrin. She has a Kyleena IUD and reports her last menstrual period involved cramping for three weeks and light bleeding for about a week. Cramping has increased over time, primarily in the front on both sides. No pain with urination, defecation, or intercourse. Meds in the past: Effexor 75 mg daily - May 2018 Wellbutrin 150 mg daily - Feb 2020 Buspar 5 mg TID - June 2020 Lexapro 10 mg daily with Buspar 5 mg TID- Sep 2020 Adderall XR 10 mg daily - August 2021 for 2 months Strattera 18 mg daily - Sep 2022 DSM-V Diagnostic Criteria for ADHD: 5 or more symptoms of inattention have been present for at least 6 months that is negatively impacting school/work/social activities: Inattention - [x] Often fails to give close attention to details or makes careless mistakes in schoolwork, work, or other activities [x] Often has difficulty sustaining attention in tasks [x] Often does not seem to listen when spoken to directly [] Often does not follow through on instructions and fails to finish schoolwork, chores, or duties in the workplace (not due to oppositional behavior or failure to understand instructions) [x] Often has difficulty organizing tasks and activities [x] Often avoids, dislikes, or is reluctant to engage in tasks that require sustained mental effort [x] Often loses things necessary for tasks or activities [x] Often easily distracted by extraneous stimuli [x] Often forgetful in daily activities (doing chores, running errands, returning calls, paying bills, keeping appointments) 5 or more symptoms of hyperactivity-impulsivity for at least 6 months that is negatively impacting school/work/social activities: Hyperactivity - [x] Often fidgets with hands or feet or squirms in seat [] Often leaves seat in classroom or in other situations in which remaining seated is expected [x] Often runs about or climbs excessively in situations in which it is inappropriate; feelings of restlessness [] Often has difficulty playing or engaging in leisure activities quietly [x] Is often on the go; restlessness, difficulty relaxing, or on edge [x] Often talks excessively Impulsivity - [x] Often blurts out answers before questions have been completed [x] Often has difficulty awaiting turns [x] Often interrupts or intrudes on others [x] Symptoms present in at least 2 settings - home and school/work [x] Clear evidence that the symptoms interfere with or reduce the quality of social, school, or work functioning Adult ADHD Self-Report Scale (ASRS-v1.1) Symptom Checklist Part A (Screening) How often do you have trouble wrapping up the final details of a project, once the challenging parts have been done?: (!) Sometimes How often do you have difficulty getting things in order when you have to do a task that requires organization?: (!) Often How often do you have problems remembering appointments or obligations?: (!) Often When you have a task that requires a lot of thought, how often do you avoid or delay getting started?: (!) Very Often How often do you fidget or squirm with your hands or feet when you have to sit down for a long time?: (!) Very Often How often do you feel overly active and compelled to do things, like you were driven by a motor?: (!) Often Part B (Other Symptoms) How often do you make careless mistakes when you have to work on a boring or difficult project?: Sometimes How often do you have difficulty keeping your attention when you are doing boring or repetitive work?: Sometimes How often do you have difficulty concentrating on what people say to you, even when they are speaking to you directly?: (!) Very Often How often do you misplace or have difficulty finding things at home or at work?: (!) Very Often How often are you distracted by activity or noise around you?: (!) Often How often do you leave your seat in meetings or other situations in which you are expected to remain seated?: Rarely How often do you feel restless or fidgety?: (!) Often How often do you have difficulty unwinding and relaxing when you have time to yourself?: (!) Very Often How often do you find yourself talking too much when you are in social situations?: (!) Often When you're in a conversation, how often do you find yourself finishing the sentences of the peopleyou are talking to, before they can finish them themselves?: (!) Often How often do you have difficulty waiting your turn in situations when turn taking is required?: Sometimes How often do you interrupt others when they are busy?: Rarely Wender Fernanda Rating Scale Score - 70 (Score >46 predictive of having childhood ADHD Patient Health Questionnaire (PHQ-9) PHQ Screening Over the past 2 weeks, how often have you been bothered by any of the following problems? Little Interest or Pleasure in Doing Things: 1-Several days Feeling Down, Depressed, or Hopeless: 1-Several days PHQ-2 Total Score (If total score is 3 or more points, staff should administer the PHQ-9): 2 Trouble Falling or Staying Asleep, or Sleeping too Much: 3-Nearly every day Feeling Tired or Having Little Energy: 3-Nearly every day Poor Appetite or Overeatin-Nearly every day Feeling Bad About Yourself - or That You are a Failure or Have Let Yourself or Your Family Down: 2-More than half the days Trouble Concentrating on Things, Such as Reading the Newspaper or Watching Television: 2-More than half the days Moving or Speaking so Slowly That Other People Could Have Noticed, or the Opposite - Being so Fidgety or Restless That You Have Been Moving Around a lot More Than Usual: 3-Nearly every day Thoughts That You Would be Better off , or of Hurting Yourself in Some Way: 0-Not at all PHQ-9 Total Score: 18 If you checked off any problems, how difficult have these problems made it for you to do your work,take care of things at home, or get along with other people?: Somewhat difficult Generalized Anxiety Disorder (GAS-7) Feeling nervous, anxious, or on edge: Nearly every day Not being able to stop or control worrying: Nearly every day Worrying too much about different things: Nearly every day Trouble relaxing: Nearly every day Being so restless that it's hard to sit still: Over half the days Becoming easily annoyed or irritable: Nearly every day Feeling afraid as if something awful might happen: Over half the days Total Score: 19 If you checked off any problems, how difficult have these made it for you to do your work, take care of things at home, or get along with other people?: Very difficult Binge Eating Disorder Screener (BEDS-7) Symptom Self-Assessment During the last 3 months, did you have any episodes of excessive overeating [x] Yes [] No Do you feel distressed about your episodes of excessive overeating? [x] Yes [] No Within the past 3 months ... During your episodes of excessive overeating... Never or Rarely Sometimes Often Always - how often did you feel like you had no control over your eating? [] [] [] [x] - how often did you continue eating even though you were not hungry? [] [] [] [x] - how often were you embarrassed by how much you ate? [] [] [] [x] - how often did you feel disgusted with yourself or guilty afterward? [] [] [] [x] - how often did you make yourself vomit as a means to control your weight or shape? [] [x] [] [] DSM5 Diagnostic Criteria for Binge-Eating Disorder [x] Criterion 1 Recurrent episodes of binge eating. An episode of binge eating is characterized by both of the following: A. Eating, in a discrete period of time (within any 2 hour period), an amount of food that is definitely larger than most people would eat in a similar period of time under similar circumstances. B. The sense of lack of control over eating during the episode (a feeling that one cannot stop eating or control what or how much one is eating) [x] Criterion 2 Binge-eating episodes are associated with three (or more) of the following: [x] A. Eating much more rapidly than normal. [x] B. Eating until feeling uncomfortably full. [x] C. Eating large amounts of food when not feeling physically hungry. [x] D. Eating alone because of being embarrassed by how much one is eating. [x] E. Feeling disgusted with oneself, depressed, or very guilty after overeating. [x] Criterion 3 Marked distress regarding binge eating is present. [x] Criterion 4 The binge eating occurs, on average, [x] A. At least 2 days a week for 6 months [] B. At least 1 day a week for 3 months. [] Criterion 5 The binge eating is not associated with the regular use of inappropriate compensatory behavior (purging, fasting, excessive exercise) and macias snot occur exclusively during the course of anorexia nervosa or bulimia nervosa. Severity Grading [] Mild: 1 to 3 episodes per week [x] Moderate: 4 to 7 episodes per week [] Severe: 8 to 13 episodes per week [] Extreme: 14 or more episodes per week Current Outpatient Medications: escitalopram (LEXAPRO) 10 mg tablet, Take 1 tablet (10 mg total) by mouth daily, Disp: 90 tablet, Rfl: 11 levonorgestreL (KYLEENA) IUD, 1 each by intrauterine route once, Disp: , Rfl: atomoxetine (STRATTERA) 40 mg capsule, Take 1 capsule (40 mg total) by mouth daily, Disp: 30 capsule, Rfl: 11 PHYSICAL EXAM Vitals: 01/07/25 1306 BP: 112/70 Pulse: 82 Temp: 37.1 ??C (98.7 ??F) SpO2: 99% Weight: 94.9 kg (209 lb 2 oz) Height: 162.6 cm (5' 4) Physical Exam Vitals and nursing note reviewed. Constitutional: Appearance: Normal appearance. She is well-developed. HENT: Head: Normocephalic and atraumatic. Eyes: General: Lids are normal. Pulmonary: Effort: Pulmonary effort is normal. No tachypnea or respiratory distress. Musculoskeletal: Cervical back: Normal range of motion. Neurological: Mental Status: She is alert and oriented to person, place, and time. Mental status is at baseline. Psychiatric: Attention and Perception: Attention and perception normal. Mood and Affect: Affect is flat. Speech: Speech normal. Behavior: Behavior normal. Thought Content: Thought content normal. Cognition and Memory: Cognition and memory normal. Judgment: Judgment normal. Assessment/Plan Assessment & Plan Attention-deficit hyperactivity disorder (ADHD) Current symptoms impair school performance. Previous Adderall caused palpitations. Strattera previously used at low dose. - Restarted Strattera at 40 mg once daily. - Instructed to message in one week to report on effectiveness. - Scheduled follow-up in one month to reassess symptoms and medication efficacy. Binge eating disorder Episodes occur twice weekly with distress and lack of control. ADHD may contribute as a dopamine-seeking behavior. - Address underlying ADHD and mood disorders to potentially reduce binge eating episodes. Major depressive disorder and anxiety disorder Symptoms include anxiety, depression, and emotional management difficulties. Lexapro at 10 mg dailyis current treatment. - Consider increasing Lexapro to 20 mg if symptoms persist. - Encouraged therapy to manage emotions and improve coping strategies. Dysmenorrhea with prolonged cramping and pelvic pain Prolonged cramping and light bleeding since IUD insertion. - Ordered pelvic ultrasound to assess IUD position. Diagnoses and all orders for this visit: Pelvic pain (R10.20) (Primary) - US Pelvis Complete; Future ADHD (attention deficit hyperactivity disorder), combined type (F90.2) Diagnosed with Attention Deficit Hyperactivity Disorder (ADHD), combined type, Depression, and Generalized Anxiety based on DSM-5 criteria. The following ADHD Quesitonnaires were reviewed and interpreted: Adult ADHD Questionnaire: Self Report Scale (ASRS-V1.1), Wender Pennington Rating Scale for ADHD, PHQ-9, and TOM-7 Struggling with difficulty concentrating, easily distracted, forgetfulness and losing things, trouble following directions, difficulty in completing tasks, poor time management, excessive fidgeting, restlessness, talking excessively or interrupting others, impulse control, risk taking, academic grades, trouble falling and/or staying asleep, and emotional regulations Has tried counseling/therapy, changes in home environment, and other medications such as: Lexapro, Effexor, Buspar, Wellbutrin with minimal to no improvement in symptoms. Symptoms are negatively impacting school/work performance and social interactions. Medical conditions that have symptoms similar to those with ADHD have been considered such as: hearing impairment, thyroid disease, liver disease, sleep apnea, drug interactions, anxiety, depression,mood disorders, drug abuse, and learning disorders. Further discussed treatment options of: school/work based interventions, cognitive behavioral therapy, stimulant medication and non-stimulant medications. Stimulant medications are better studied in children, tend to be more successful as a single medication, and are more effective for inattention t rahman non-stimulants. Non-stimulants are oftne used as add-on medications, but some children do well on a non-stimulant medication as a single medication. Plan to begin: Strattera 40 mg daily Discussed common side effects of stimulant medications are: sleep disturbance, decreased appetite, belly upset, emotional sensitivity, anxiousness, increase pantoja rate and blood pressure. Non-stimulant medications cause cause: sleepiness, abdominal pain, headaches. Follow up every month with dosage changes and if experiencing side effects, then every 3-6 months once stable on medication. TOM (generalized anxiety disorder) (F41.1) Moderate episode of recurrent major depressive disorder (HCC) (F33.1) Moderate binge-eating disorder (F50.811) Class 2 obesity due to excess calories without serious comorbidity with body mass index (BMI) of 35.0 to 35.9 in adult (E66.812, E66.09, Z68.35) Other orders - atomoxetine (STRATTERA) 40 mg capsule; Take 1 capsule (40 mg total) by mouth daily Felicia Munguia NP Cosigned by Aracelis Almeida MD at 01/07/2025 5:00 PM SENIOR PROCUREMENT MANAGER OR PROCUREMENT MANAGER OR PROCUREMENT MANAGER documented in this encounter Plan of Treatment Scheduled Orders Name Type Priority Associated Diagnoses Orde r Schedule US Pelvis Complete Imaging Schedule Barndon cole, Read Routine (OP Routine) Pelvic pain Expected: 01/07/2025, Expires: 01/07/2026 documented as of this encounter Visit Diagnoses Diagnosis Pelvic pain- Primary ADHD (attention deficit hyperactivity disorder), combined type Attention deficit disorder with hyperactivity TOM (generalized anxiety disorder) Generalized anxiety disorder Moderate episode of recurrent major depressive disorder (HCC) Moderate binge-eating disorder Class 2 obesity due to excess calories without serious comorbidity with body mass index (BMI) of 35.0 to 35.9 in adult documented in this encounter Discontinued Medications Medication Sig Discontinue Reason Start Date End Da te busPIRone (BUSPAR) 5 mg tabletIndications:Genera lized Anxiety Disorder Take 1 tablet (5 mg total) by mouth 3 (three) times a day Therapy completed 10/05/2020 01/07/2025 albuterol HFA (PROVENTIL HFA,VENTOLIN HFA,PROAIR HFA) 90 mcg/actuation inhaler INHALE 1 PUFF EVERY 4 HOURS NEEDED FOR WHEEZING OR SHORTNESS OF BREATH. Therapy completed 03/10/2021 01/07/2025 Aklief 0.005 % cream Therapy completed 01/16/2022 Onexton 1.2 %(1 % base) -3.75 % gel with pump Therapy completed 01/16/2022 01/08/20 atomoxetine (STRATTERA) 18 mg capsuleIndications:Atten tion-Deficit Hyperactivity Disorder Take 1 capsule (18 mg total) by mouth daily Therapy completed 10/02/2022 01/07/2025 tirzepatide, weight loss, (Zepbound) 5 mg/0.5 mL pen injector Inject 0.5 mL (5 mg total) under the skin every 7 days Therapy completed 05/28/2024 01/07/2025 documented as of this encounter Care Teams Parts Runner Relationship Specialty Start Date End Date Felicia Munguia NP [address] [place] [address] PCP - General Family Medicine 01/07/25 documented as of this encounter
[2025-01-08] VITALS (9 sets, daily range): BP systolic 98–131; BP diastolic 29–82; PULSE 63–87; RESP 14–16; TEMP 36.7–37; O2SAT 97–100
--- NOTE | ~2025-01-08 | XR_ITS ---
EXAMINATION: XR surgery orthopedic DATE: 01/08/2025 08:27 INDICATION: Left ankle TECHNIQUE: 4 fluoroscopic images of the left ankle were obtained procedure performed by Dr. Ha. Radiologist was not present for the imaging or procedure. The amount of fluoroscopy time used during this procedure was 1.6 minutes. The dose area product was 18.83 mGym^2. COMPARISON: 07/03/2024 FINDINGS: Interval movement of the lateral plate and screws at the distal fibula and pair of lag screws at the medial malleolus with no residual retained foreign bodies. The prior fracture healed in essentially anatomic alignment. Joint spaces are normal. IMPRESSION: 1. No residual foreign bodies post removal of internal fixation for now healed medial and lateral malleolus fractures. See procedure note for further detail. Reviewed, dictated and finalized at location A. LIENT TILE INSTALLER
--- OUTSIDE RECORDS SUMMARY | 2025-01-08 01:16 | XMS_ITS | Clinical Summary ---
Author Organization [facility] Address [address] [place] [address] Phone Care Team Providers Care Septic Tank Service Technician Name Role Phone Unavailable Primary Care Provider [...] 2:39 PM CDT Height 165.1 cm (5' 5) 09/06/2022 2:39 PM CDT Body Mass Index 37.94 09/06/2022 2:39 PM CDT Plan of Treatment Health Maintenance Due Date Last Done Comments CHLAMYDIA SCREENING (ANNUAL) 11-24 YEARS 2012 CERVICAL CANCER SCREENING 2022 HPV/Cotest (21-29) 2022 PAP SMEAR 2022 DTAP/TDAP/TD VACCINES (7 - T d or Tdap) 09/06/2022 09/06/2012, 10/01/2006, 06/05/2002, Additional history exists INFLUENZA VACCINE (#1) 2024 , 02/11/2021, 01/15/2020, Additional history exists HEPATITIS B VACCINES Completed 06/05/2002, 06/05/2002, 2001, Additional history exists HPV VACCINES Completed 12/21/2014, 05/28, 12/11/2013 Insurance [facility]
--- OUTSIDE RECORDS SUMMARY | 2025-01-08 01:16 | XMS_ITS | Clinical Summary ---
Author Organization [facility] Address [address] [place] [address] Care Team Providers Care Cuff Maker Name Role Phone Felicia Munguia NP Primary Care Provider [phone] Allergies No known active allergies Medications levonorgestreL (KYLEENA) IUD 1 each by intrauterine route once 07/08/19 22 027 Active escitalopram (LEXAPRO) 10 mg tablet Take 1 tablet (10 mg total) by mouth daily 90 tablet 11 02/12/20 24 Active atomoxetine (STRATTERA) 40 mg capsuleIndication s:Attention-Defic it Hyperactivity Disorder Take 1 capsule (40 mg total) by mouth daily 30 capsule 11 01/08/20 25 026 Active busPIRone (BUSPAR) 5 mg tabletIndications :Generalized Anxiety Disorder Take 1 tablet (5 mg total) by mouth 3 (three) times a day 270 tablet 3 10/06/19 21 025 Discontin ued(Thera py completed ) albuterol HFA (PROVENTIL HFA,VENTOLIN HFA,PROAIR HFA) 90 mcg/actuation inhaler INHALE 1 PUFF EVERY 4 HOURS NEEDED FOR WHEEZING OR SHORTNESS OF BREATH. 8.5 each 1 03/10/19 22 025 Discontin ued(Thera py completed ) Aklief 0.005 % cream 01/17/20 22 025 Discontin ued(Thera py completed ) Onexton 1.2 %(1 % base) -3.75 % gel with pump 01/17/20 22 025 Discontin ued(Thera py completed ) atomoxetine (STRATTERA) 18 mg capsuleIndication s:Attention-Defic it Hyperactivity Disorder Take 1 capsule (18 mg total) by mouth daily 90 capsule 1 10/03/19 23 025 Discontin ued(Thera py completed ) tirzepatide, weight loss, (Zepbound) 5 mg/0.5 mL pen injector Inject 0.5 mL (5 mg total) under the skin every 7 days 2 mL 2 05/29/19 25 025 Discontin ued(Thera py completed ) Active Problems Problem Noted Date Diagnosed Date ADHD (attention deficit hype ractivity disorder), combined type 01/07/2025 Moderate binge-eating disorder 01/07/2025 TOM (generalized anxiety disorder) 10/05/2020 Assessment & Plan (10/02/2022 2:07 PM [...] plan. Assessment & Plan (02/13/2022 3:43 PM WELDING SYSTEMS AND EQUIPMENT REPAIRER): Continue Lexapro 10 mg daily.. Pt agrees [...] medication(s) Assessment & Plan (02/11/2021 11:28 AM WELDING SYSTEMS AND EQUIPMENT REPAIRER): Patient doing well on Lexapro and BuSpar [...] medication(s) Assessment & Plan (02/13/2022 3:41 PM WELDING SYSTEMS AND EQUIPMENT REPAIRER): Chronic and stable. Continue current medication(s) Assessment [...] plan. Assessment & Plan (03/26/2020 8:21 AM WELDING SYSTEMS AND EQUIPMENT REPAIRER): Patient seems to be improving on wellbutrin [...] plan. Assessment & Plan (03/11/2020 8:57 AM WELDING SYSTEMS AND EQUIPMENT REPAIRER): Wean off Effexor and start Wellbutrin since [...] Pt understands and agrees with treatment plan. Resolved Problems Problem Noted Date Diagnosed Date Resolved Date B12 deficiency 10/02/2022 01/07/2025 Assessment & Plan (10/02/2022 2:10 PM CDT): B12 on low end of normal. Discussed with patient she may utilize vfiv-pij-ikdzmys B12 500 mcg daily. Urinary incontinence 08/10/2022 [...] and call if consistently greater than 130/80. Encounter for weight loss counseling 10/12/2021 01/07/2025 Assessment & Plan (06/06/2023 2:51 PM CDT): [...] in the past. She will contact the [facility] if she wishes to start medication and follow-up in 4 weeks. Assessment & Plan (10/12/2021 10:37 AM CDT): Discussed healthy living today including need for healthy weight, healthy diet, adequate sleep, adequate activity level, and health maintenance screening tests. Attention deficit hyperactiv ity disorder (ADHD), predominantly inattentive type 08/30/2021 1 03/09/2024 Assessment & Plan (10/02/2022 2:07 PM CDT): Chronic and worsening. Trial Strattera 18 mg daily. Discussed with patient if this helps improve symptoms of anxiety may also titrate down Lexapro. She will send message through [employer] regarding updates since she will be going back to school. If symptoms persist or worsen please call or return to clinic. Patient will schedule Pap and wellness exam. Assessment & Plan (08/10/2022 2:19 PM CDT): Unable to tolerate Adderall. Seems to be stable in school at this time. Assessment & Plan (02/13/2022 3:43 PM WELDING SYSTEMS AND EQUIPMENT REPAIRER): Chronic and worsening since she has not [...] Patient will be moving back to [facility] for fall. She will follow-up in 3 months when she is on fall break. Assessment & Plan (08/30/2021 3:45 PM CDT): Will start Adderall 10 mg once daily in collaboration with Dr. Merchant. Patient is attending school and working full-time. Discussed with patient this should better help her focus on her studies. Follow-up in 4 weeks for wellness exam and further evaluation. IUD contraception 05/26/2021 05/14/2024 Assessment & Plan [...] 22 Assessment & Plan (02/11/2021 11:26 AM WELDING SYSTEMS AND EQUIPMENT REPAIRER): Clinical presentation of exercise-induced asthma however will [...] 07/09/2020 Assessment & Plan (03/11/2020 8:56 AM WELDING SYSTEMS AND EQUIPMENT REPAIRER): Will COVID test today since patient is returning to school. Chronic fatigue 03/11/2020 01/07/2025 Assessment & Plan (08/10/2022 2:18 PM CDT): [...] of 38.0 to 38.9 in adult 03/11/2020 01/07/2025 Assessment & Plan (10/02/2022 2:00 PM CDT): BMI Follow-up includes: education provided. Assessment & Plan (08/10/2022 2:23 PM CDT): BMI Follow-up includes: education provided. Assessment & Plan (02/13/2022 3:30 PM WELDING SYSTEMS AND EQUIPMENT REPAIRER): BMI Follow-up includes: education provided. Assessment & Plan (10/12/2021 10:48 AM CDT): BMI Follow-up includes: education provided. Assessment & Plan (08/30/2021 3:23 PM CDT): BMI Follow-up includes: education provided. Assessment & Plan (05/26/2021 12:31 PM CDT): BMI Follow-up includes: education provided. Assessment & Plan (02/11/2021 11:25 AM WELDING SYSTEMS AND EQUIPMENT REPAIRER): BMI Follow-up includes: education provided. Assessment & Plan (07/09/2020 1:29 PM CDT): BMI Follow-up includes: education provided. Assessment & Plan (03/26/2020 8:20 AM WELDING SYSTEMS AND EQUIPMENT REPAIRER): BMI Follow-up includes: education provided. Assessment & Plan (03/11/2020 9:00 AM WELDING SYSTEMS AND EQUIPMENT REPAIRER): BMI Follow-up includes: education provided. Closed oblique fracture of w aist of scaphoid bone of right wrist 06/13/2018 03/11/2020 Encounters Date Type Department Care Team Description 01/07/2025 1:00 PM WELDING SYSTEMS AND EQUIPMENT REPAIRER Office Visit [facility] [place] [address] Felicia Munguia NP Pelvic pain (Primary Dx); ADHD (attention deficit hyperactivity disorder), combined type; TOM (generalized anxiety disorder); Moderate episode of recurrent major depressive disorder (HCC); Moderate binge-eating disorder; Class 2 obesity due to excess calories without serious comorbidity with body mass index (BMI) of 35.0 to 35.9 in adult from Last 3 Months Immunizations Immunization Administration Dates Next Due COVID-19 mRNA (Amplience) 0.3 m L (30 mcg) vaccine (12 [...] Preser vative Free, Intramuscular 02/12/2024 Influenza, Unspecified 01/07/2025(Deferr ed: Patient decision),11/26/2022(Deferred: Patient decision),02/13/2022(Deferred: Patient Refused) MMR 10/01/2006,06/05/2002 Meningococcal B, OMV (Bexsero) 01/15/2020 Meningococcal Conjugate (Menveo) 01/15/2020 Meningococcal MCV4P (Menactra) 04/24/2018,2012 [employer] SARS-CoV-2 Monovalent Vaccination (12+ Yrs) PURPLE 09/17/2020,08/25/2020 Pneumococcal Conjugate 7-Valent 12/19/19 03,2001,2001,08/07 Polio, Unspecified 2001,2001, 002 Tdap 09/06/2012 Varicella 10/01/2006,06/05/2002 Surgical History Surgery Date Site/Laterality Comments ANKLE FRACTURE SURGERY Left Medical History Medical History Date Comments Heart murmur Adhd Family History Medical History Relation Name Comments [...] on file Legal Sex Female 12:30 AM WELDING SYSTEMS AND EQUIPMENT REPAIRER Gender Identity Not on file Sexual Orientation Not on file Obstetrics History Para Term AB IAB SAB Ectopic Multiple Livin g Live Births 0 0 0 0 0 0 0 0 0 0 0 Last Filed Vital Signs Vital Sign Reading Time Taken Comments Blood Pressure 112/70 01/07/2025 1:06 PM WELDING SYSTEMS AND EQUIPMENT REPAIRER Pulse 82 01/07/2025 1:06 PM WELDING SYSTEMS AND EQUIPMENT REPAIRER Temperature 37.1 C (98.7 F) 01/07/2025 1:06 PM WELDING SYSTEMS AND EQUIPMENT REPAIRER Respiratory Rate 20 05/14/2024 3:16 PM CDT Oxygen Saturation 99% 01/07/2025 1:06 PM WELDING SYSTEMS AND EQUIPMENT REPAIRER Inhaled Oxygen Concentration - - Weight 94.9 kg (209 lb 2 oz) 01/07/2025 1:06 PM WELDING SYSTEMS AND EQUIPMENT REPAIRER Height 162.6 cm (5' 4) 01/07/2025 1:06 PM WELDING SYSTEMS AND EQUIPMENT REPAIRER Body Mass Index 35.9 01/07/2025 1:06 PM WELDING SYSTEMS AND EQUIPMENT REPAIRER Plan of Treatment Health Maintenance Due Date Last Done Comments Hepatitis C Screening 2001 Meningococcal B Vaccine (2 o f 2 - Bexsero SCDM 2-dose series) 07/14/2020 01/15/2020 DTaP/Tdap/Td Vaccine (7 - Td or Tdap) 09/06/2022 09/06/2012, 10/01/2006, 06/05/2002, Additional history exists Covid-19 Vaccine (2024-2 6 season) 2024 02/12/2024, 09/17/2020, 08/25/2020 Influenza Vaccine (#1) 2024 , 02/13/2022, 02/11/2021, Additional history exists Cervical Cancer Screening 05/14/2025 05/14/2024 Chlamydia and Gonorrhea (GC/ CT) Screening 05/14/2025 05/14/2024, 07/12/2020, 07/09/2020 Regular Well Visit/Exam 18-64 05/14/2025, 10/12/2021, 01/15/2020 Depression Screening 01/07/2026 01/07/2025, 01/07/2025, 05/14/2024, Additional history exists Hepatitis B Screening Completed 06/05/2002 , 06/05/2002, 2001, Additional history exists Pneumococcal vaccine <65 Completed 003, 2001, 2001, Additional history exists Varicella Vaccines Completed 10/01/2006, 06/05/2002 HPV Vaccines Completed 12/21/2014, 05/28, 12/11/2013 Procedures Procedure Name Priority Date/Time Associated Diagnosis Comments N. GONORRHOEAE/C. TRACHOMATIS AMPLIFICATION Routine 05/14/2024 4:08 PM CDT PAP, REFLEX HPV Routine 05/14/2024 4:08 PM CDT Routine gynecological examination from Last 3 Months or Most Recently Relevant to Health Maintenance Results * Pap, reflex HPV (05/14/2024 4:08 PM CDT) CLINICAL INFORMATION: None given [facility] LMP UNKNOWN [facility] Previous Pap NONE GIVEN [facility] Prev. Bx NONE GIVEN [facility] SOURCE: Cervix, Endocervix [facility] Pap, specimen adequacy [facility] Comment: Satisfactory for evaluation. Endocervical/transformation zone component present. Age and/or menstrual status not provided HPV interp Cytology Results: Negative for intraepithelial lesion or malignancy. [facility] Infection: Fungal organisms morphologically consistent with Catherine spp. [facility] COMMENTS This Pap test has been evaluated with computer assisted technology. [facility] [facility] Supervisor Solder Making [facility] [employer] [facility] Comment: TLS, CT(ASCP) CT Screening Location: [address] [address] Comment [facility] [employer] [facility] Comment: EXPLANATORY NOTE: The Pap is a [...] ORDERABL ES Final Result Performing Organization Address City/[facility]/ZIP Co de Phone Number [facility] [employer] [place] [address] [place] [address] * N. gonorrhoeae/C. trachomatis Amplification (05/14/2024 4:08 PM CDT) C. trachomatis RNA NOT DETECTED NOT DETECTED [facility] N. gonorrhoeae RNA NOT DETECTED NOT DETECTED [employer] [place] Comment [employer] [facility] Comment: The analytical performance characteristics of this assay, when used to test SurePath(TM) specimens have been determined by [employer]. The modifications have not been cleared or approved by the FDA. This assay has been validated pursuant to the CLIA regulations and is used for clinical purposes. For additional information, please refer to https://education.[employer]/faq/TND257 (This link is being provided for information/ educational purposes only.) 05/14/2024 4:08 PM CDT 05/16/2024 3:49 AM CDT Aracelis Almeida MD LAB MICROBIOLOGY - GE NERAL ORDERABLES Final Result Performing Organization Address City/[facility]/ZIP Co de Phone Number [facility] [address] [place] [address] from Last 3 Months or Most Recently Relevant to Health Maintenance Insurance [facility] HMO/PPO Address: [address] [place] [address] [facility] [employer] [place] PREFERRED Care Teams Cuff Maker Relationship Specialty Start Date End Date Felicia Munguia NP [address] [place] [address] PCP - General Family Medicine 01/07/25
--- NOTE | 2025-01-08 06:28 | WPDHPUPDATE1 ---
History and Physical Update Update Date/Time: 01/08/25 06:28 History and Physical has been reviewed, including an updated exam of the patient. There are NO changes in the patient's condition. Risks, benefits, and alternatives have been discussed and questions answered. Patient agrees to proceed with procedure.
[2025-01-08] MEDS: LACTATED RINGERS 1,000 ML 30 ML IV CONT (06:30)
--- NOTE | 2025-01-08 06:38 | P.PNAN_ITS ---
Anes - Initial Pre Proc Eval Procedure: Operation Date: 01/08/25 07:30 Proposed Procedures p Removal of Hardware Left Ankle - Dominick Keys MD Date/Time: 01/08/25 06:38 Surgeon: Dominick Keys MD Pre Op Diagnosis: Painful Hardware Left Ankle Patient Data Age: 24 Gender: F Height: 1.63 m Weight: 90.9 kg Allergies Allergy/AdvReac Type Severity Reaction Status Date / Time No Known Allergies Allergy Verified 12/24/24 14:45 Home Medications ?Medication ?Instructions ?Recorded ?Confirmed ?Type clindamycin phosphate 1 % topical 1 applic topical HS 07/02/24 12/24/24 History gel escitalopram oxalate 10 mg tablet 10 mg PO DAILY 07/0212/24/24 History mupirocin 2 % topical ointment 1 applic topical BID #2 2 grams 08/20/24 12/24/24 Rx ([facility]) multivitamin (Daily Multi-Vitamin 1 tablet PO DAILY 12/24/24 History tablet) Patient hx anesthesia problems: none Family hx anesthesia problems: none Results Review: All pre-operative results and documents have been reviewed as part of the pre- operative evaluation. [facility] Past Medical History Medical History (Updated 01/08/25 @ 06:39 by El Chaidez MD) Marijuana smoker Obesity Painful orthopaedic hardware Surgical History Surgical History (Updated 01/08/25 @ 06:39 by El Chaidez MD) History of ankle surgery Family History Family History Father Type 1 diabetes Mother Uterine sarcoma Social History Social History Smoking status: Never smoker Alcohol intake: current Alcohol use details: 1/month Substance use: former Substance use type: marijuana Do You Feel Safe in your Home?: Yes Lack of Transportation: No Lack of Food: Never True Current Housing: I Have Housing Concerned About Future Housing: No Difficulty Paying Gas/Electric Bills: No Difficulty Paying for Meds: No Currently Unemployed: No Education: Associate Degree Difficulty w/ Childcare or Family Care: No Living arrangements: with friend(s) Spiritual care concerns: No Anes - Eval Final PreProcedure Day of Procedure 11/13/25 06:38 Patient weight: obese Heart: regular rate and rhythm Lungs: clear to auscultation Airway: Mallampati scale class II Neurological: alert and oriented Last oral intake: >/= 8 hours ASA classification: II Emergent: no Anesthetic plan: proceed Anesthesia type and monitoring: general LMA and standard monitoring Results Review: All pre-operative results and documents have been reviewed as part of the pre- operative evaluation. Informed Consent: The patient's anesthetic plan and its attendant risks and benefits were discussed with the patient/family/POA. Questions were solicited and answers provided to the satisfaction of the patient/family/POA.
[2025-01-08] MEDS: ACETAMINOPHEN 500 MG TABLET 1000 MG PO (07:10)
[2025-01-08] MEDS: KETOROLAC 15 MG/ML VIAL (*BKC) IV PUSH (07:11)
[2025-01-08] MEDS: SCOPOLAMINE 1 MG PATCH 1 PATCH TRANSDERM (07:11)
[2025-01-08 07:12] LABS: BEDSIDEPREGUCG Negative (Negative)
[2025-01-08] MEDS: ceFAZolin 2 GM in SODIUM CHLORIDE 0.9% IV 50 ML 100 ML IVPB (07:25)
[2025-01-08] MEDS: BUPivacaine HCL 0.5% 10 ML AMP 20 ML INFILTRATE (07:57)
--- NOTE | 2025-01-08 08:50 | P.OP_ITS ---
Procedure Note - Detailed Date of Procedure 01/08/25 Pre-op Diagnosis Painful Hardware Left Ankle Post-op Diagnosis Same Procedure Performed Removal deep hardware left ankle x2 incisions Surgeon Dominick Keys MD Dispatcher Service Or Work 1st field administrative assistant Anesthesia General Indications 24-year-old woman who sustained a left ankle bimalleolar fracture treated with open fixation. Internal fixation has become prominent causes irritation and pain. Presents for removal deep hardware left ankle. Description of Procedure Patient identified in the preoperative holding. Informed consent given. Operative extremity marked. Patient received intravenous antibiotics. Patient brought to the operating room where underwent general anesthetic by anesthesia team. Positioned supine on operating room table. Time-out performed confirming the patient, site of the surgery and the plan. Left foot and ankle prepped and draped usual sterile surgical fashion using a ChloraPrep skin solution. Foot ankle exsanguinated with Esmarch and calf tourniquet inflated to 250 mmHg. Previous incisions were noted and utilized. 15 blade knife used to excise the medial incision. Hemostasis controlled with electrocautery. Dissection carried down to the medial malleolus and the 2 cannulated screws were removed with a guide pin and screw skip load driver. Screw holes debrided with curette and irrigated with saline. Fascia closed with 3-0 Monocryl interrupted suture. Skin closed with 3-0 Monocryl running subcuticular stitch. Similarly, lateral side addressed and the previous incision was excised with a 15 blade knife. Hemostasis controlled electrocautery. Dissection through the fascia revealed the plate and screws on the lateral fibula. Screws and plate were removed. Rongeur used to smooth the lateral surface of the fibula. Irrigation with saline and the fascia was then closed with 3-0 Monocryl interrupted suture. Skin approximated with running 3-0 Monocryl subcuticular stitch and Dermabond applied to both incisions. Image intensification in the room was used to verify removal of all hardware and good stability of the ankle joint and syndesmosis. Sterile dressing applied. The patient was then woken from anesthesia, extubated and taken to the recovery room in stable condition. All sponge, needle, instrument counts were correct at the end of the case. Implants Removed: Lateral plate and 6 screws, 2 medial cannulated screws. Estimated Blood Loss 5 Tourniquet Time Total Tourniquet Time: 60 Drains No Packing No Pathology None sent Complications None Condition Stable Disposition PACU [facility] Billing Surgery - Charge Forward: Surgery Billing ([id number])
[2025-01-08] MEDS: fentaNYL CITRATE INJ (*CRX) 100 MCG/2 ML VIAL 25 MCG IV PUSH ×2 (09:29→09:32)
[2025-01-08] MEDS: oxyCODONE HCL (*CRX) 5 MG TAB IR PO (09:57)
== END 2025-01-08 10:53 | disposition home or self-care (01) ==
PROVIDERS: Visit Provider Orthopaedic Surgery
PROC: (CPT 20680; principal; 2025-01-08 07:30)
DX: T84.84XA Pain due to internal orthopedic prosthetic devices, implants and grafts, initial encounter (principal); M25.572 Pain in left ankle and joints of left foot; S82.852S Displaced trimalleolar fracture of left lower leg, sequela; Y83.1 Surgical operation with implant of artificial internal device as the cause of abnormal reaction of the patient, or of later complication, without mention of misadventure at the time of the procedure; E66.9 Obesity, unspecified; Z68.35 Body mass index [BMI] 35.0-35.9, adult
CPT/HCPCS: 20680 ×2; 99199; J0690; A9270; J1010; J1100; J1885; J2250; J2405; J2704; J3010; J7120